=== PATIENT | female | born 1955 | race Caucasian/White ===

== ENCOUNTER → 2022-12-21 15:12 | Outpatient (BNVA) | payer MEDICARE, SELFPAY | PROVIDERS: PCP Family Medicine; Visit Provider Psychiatry & Neurology Psychiatry | DX: F33.41 Major depressive disorder, recurrent, in partial remission (principal); R03.0 Elevated blood-pressure reading, without diagnosis of hypertension | CPT/HCPCS: 90833; 99212 ==

== ENCOUNTER → 2023-02-15 14:43 | Outpatient (BNVA) | payer MEDICARE, SELFPAY | PROVIDERS: PCP Family Medicine; Visit Provider Psychiatry & Neurology Psychiatry | DX: F34.1 Dysthymic disorder (principal) | CPT/HCPCS: 90833; 99212 ==

== ENCOUNTER 2023-05-20 16:04 | Outpatient (AMB) | payer MEDICARE, SELFPAY ==
--- NOTE | 2023-05-20 17:01 | A.OFFPSYCH_ITS ---
Intake Intake Visit Reasons: depression Allergies No Known Allergies Allergy (Verified 02/15/23 15:21) Medication List - Last Reconciled 05/20/23 by Uli Catalan MD venlafaxine ER 75 mg PO DAILY zolpidem (Ambien) 5 mg PO BEDTIME PRN HPI- Psychiatric Chief Complaint: depression HPI Narrative: Patient has small episodes of dysphoria and melancholy which she can generally work through. Still trying to figure out her balance in life with her elderly mother living with her who is dealing dementia but still I can be taken care of at home in patient perhaps returning to work at least part-time perhaps she continues on venlafaxine which generally has been stabilizing and perhaps protective for helping with chronic anxiety rumination and helping prevent worse past aspects of depressive episodes. No complaints of side effects she does feel a lack of support by some of her family but can arrange for some time away when needed Past Psychiatric History: past hx recurrent depression x years chronic social anxiety Mental Status Exam Mental Status Exam Patient Appearance: Well Grooomed Patient Orientation: Person, Place, Time and Situation Level of Consciousness: Awake Patient Behavior: Appropriate Mood Description: Appropriate Affect Description: Appropriate and Constricted Patient Cognition Impaired: No Ability to Follow Directions: Excellent Speech Pattern: Clear and Appropriate Memory Description: Intact Hallucinations: None Delusions: Not Present Thought Process: Intact Thought Content: positive for Preoccupation, negative for Suicidal Ideation or negative for Homicidal Ideation Depressive Symptoms: Increased Anxiety, Diff. Making Decisions and Low Self Esteem Judgement: Good Judgement and Insight: Difficulty decision making in relation to longterm her mother living with her tendency toward self deprecation Assessment and Plan Assessment & Plan (1) Dysthymia: Status: Acute Code(s): F34.1 - Dysthymic disorder (2) Borderline hypertension: Status: Acute Code(s): R03.0 - Elevated blood-pressure reading, without diagnosis of hypertension (3) Social anxiety disorder: Status: Acute Code(s): F40.10 - Social phobia, unspecified Plan Patient generally stable encourage consideration of use of light box in fall we have discussed L methyl folate continue venlafaxine encouraged daily exercise relaxation techniques trying clarify decision-making and future planning encourage increase activities patient does have a good friend support system close with children Counseling and coordination of Care Pt. Self Management counseling: Breathing and Sleep hygiene Details-Self Mgmt counseling: Life management and longterm related decisions Details: I spent [40] minutes reviewing the record, seeing the patient and documenting in the medical record. Counseling provided to the patient/caregiver as outlined below. Addressed patient/caregiver concerns regarding current medication regime including effective adherence. Addressed patient/caregiver concerns regarding diagnosis and prognosis including accuracy of diagnosis, prognosis over time, impact of diagnosis. Addressed patient/caregiver concerns regarding impact of recent stressors. 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
== END 2023-05-20 16:52 | disposition home or self-care (01) ==
LOC: HO.HOP 16:04
PROVIDERS: PCP Family Medicine; Visit Provider Psychiatry & Neurology Psychiatry
DX: F34.1 Dysthymic disorder (principal); R03.0 Elevated blood-pressure reading, without diagnosis of hypertension; F40.10 Social phobia, unspecified
CPT/HCPCS: 90833; 99213

== ENCOUNTER → 2023-05-20 16:04 | Outpatient (BNVA) | payer MEDICARE, SELFPAY | PROVIDERS: PCP Family Medicine; Visit Provider Psychiatry & Neurology Psychiatry | DX: F34.1 Dysthymic disorder (principal); F40.10 Social phobia, unspecified; R03.0 Elevated blood-pressure reading, without diagnosis of hypertension | CPT/HCPCS: 90833; 99212 ==

== ENCOUNTER 2023-09-23 13:49 | Outpatient (AMB) | payer MEDICARE, SELFPAY ==
--- NOTE | 2023-09-23 14:28 | MHC.OFFVISPS ---
Intake Intake Visit Reasons: depression Allergies No Known Allergies Allergy (Verified 02/15/23 15:21) HPI- Psychiatric Chief Complaint: depression HPI Narrative: Pt is a 68 yo female generally doing ok mother living with her this cont to work in past mother was entitled mother was always very defended feels like its working for her now home other tends more to follow direction at this point she feels less constrained does feel supported by her brothers when needed has not felt the need to return to work at this point does a lot of home projects Past Psychiatric History: past hx recurrent depression x years chronic social anxiety Mental Status Exam Mental Status Exam Patient Appearance: Well Grooomed Patient Orientation: Person, Place, Time and Situation Level of Consciousness: Awake Patient Behavior: Appropriate Mood Description: Calm, Happy and Appropriate Affect Description: Appropriate Patient Cognition Impaired: No Ability to Follow Directions: Excellent Speech Pattern: Clear and Appropriate Memory Description: Intact Hallucinations: None Delusions: Not Present Thought Process: Intact Thought Content: positive for Intact, negative for Suicidal Ideation or negative for Homicidal Ideation Judgement: Good Assessment and Plan Assessment & Plan (1) Social anxiety disorder: Status: Acute Code(s): F40.10 - Social phobia, unspecified (2) Borderline hypertension: Status: Acute Code(s): R03.0 - Elevated blood-pressure reading, without diagnosis of hypertension Plan Continue venlafaxine patient is aware she may at some point half to put her mom in to assisted living mood stable pleasant future oriented Medications: Refilled venlafaxine ER 75 mg PO DAILY 90 caps 1RF Counseling and coordination of Care Pt. Self Management counseling: Breathing Diagnosis and Prognosis Counseling: Impact of diagnosis on life functions and Adequacy of current interventions Details: I spent [36] minutes reviewing the record, seeing the patient and documenting in the medical record. Counseling provided to the patient/caregiver as outlined below. Addressed patient/caregiver concerns regarding current medication regime including effective adherence. Addressed patient/caregiver concerns regarding diagnosis and prognosis including accuracy of diagnosis, prognosis over time, impact of diagnosis. Addressed patient/caregiver concerns regarding impact of recent stressors. 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
== END 2023-09-23 15:53 | disposition home or self-care (01) ==
LOC: HO.HOP 13:49
PROVIDERS: PCP Family Medicine; Visit Provider Psychiatry & Neurology Psychiatry
DX: F40.10 Social phobia, unspecified (principal); R03.0 Elevated blood-pressure reading, without diagnosis of hypertension
CPT/HCPCS: 90833; 99213

== ENCOUNTER → 2023-09-23 13:49 | Outpatient (BNVA) | payer MEDICARE, SELFPAY | PROVIDERS: PCP Family Medicine; Visit Provider Psychiatry & Neurology Psychiatry | DX: F40.10 Social phobia, unspecified (principal); R03.0 Elevated blood-pressure reading, without diagnosis of hypertension | CPT/HCPCS: 90833; 99212 ==

== ENCOUNTER 2024-02-03 12:03 | Outpatient (AMB) | payer MEDICARE, OTHER, SELFPAY ==
--- NOTE | 2024-02-03 12:15 | A.OFFPSYCH_ITS ---
Intake Intake Visit Reasons: depression Allergies No Known Allergies Allergy (Verified 02/15/23 15:21) HPI- Psychiatric Chief Complaint: depression HPI Narrative: Pt now on lisinopril 10 mg has been under inc stress has been great mother with dementia goes to day tx 3 x wk pt is able to go out for periods of time gets more confused at nite the patient has made peace with the fact that her mother may at some point in the not too distant future may need to go to a senior care. Her mood is generally okay she is active and social she does have some periods of dysphoria but able to work those through Past Psychiatric History: past hx recurrent depression x years chronic social anxiety Mental Status Exam Mental Status Exam Patient Appearance: Well Grooomed Patient Orientation: Person, Place, Time and Situation Level of Consciousness: Awake Patient Behavior: Appropriate Mood Description: Calm, Happy and Appropriate Affect Description: Appropriate and Anxious Patient Cognition Impaired: No Ability to Follow Directions: Excellent Speech Pattern: Clear and Appropriate Memory Description: Intact Hallucinations: None Delusions: Not Present Thought Process: Intact Thought Content: positive for Intact, negative for Suicidal Ideation or negative for Homicidal Ideation Depressive Symptoms: Increased Anxiety Judgement: Good Assessment and Plan Assessment & Plan (1) Social anxiety disorder: Status: Acute Code(s): F40.10 - Social phobia, unspecified (2) Dysthymia: Status: Acute Code(s): F34.1 - Dysthymic disorder Plan Discussed with patient use of doxepin low-dose at bedtime for insomnia may help with anxiety risks benefits alternatives reviewed Ambien discontinued Medications: New doxepin 10 mg PO BEDTIME 30 caps 1RF Refilled venlafaxine ER 75 mg PO DAILY 90 caps 1RF Discontinued zolpidem Discontinued Reason: Doctor's Order 5 mg PO BEDTIME PRN 30 tabs 1RF insomnia Counseling and coordination of Care Details-Self Mgmt counseling: 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 Counseling provided to the patient/caregiver as outlined below. Addressed patient/caregiver concerns regarding current medication regime including effective adherence. Addressed patient/caregiver concerns regarding diagnosis and prognosis including accuracy of diagnosis, prognosis over time, impact of diagnosis. Addressed patient/caregiver concerns regarding impact of recent stressors. 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
== END 2024-02-03 14:12 | disposition home or self-care (01) ==
LOC: HO.HOP 12:03
PROVIDERS: PCP Family Medicine; Visit Provider Psychiatry & Neurology Psychiatry
DX: F40.10 Social phobia, unspecified (principal); F34.1 Dysthymic disorder
CPT/HCPCS: 90833; 99213

== ENCOUNTER → 2024-02-03 12:03 | Outpatient (BNVA) | payer MEDICARE, OTHER, SELFPAY | PROVIDERS: PCP Family Medicine; Visit Provider Psychiatry & Neurology Psychiatry | DX: F32.A Depression, unspecified (principal); F40.10 Social phobia, unspecified; F34.1 Dysthymic disorder | CPT/HCPCS: 99212 ==

== ENCOUNTER 2024-05-08 14:07 | Outpatient (AMB) | payer MEDICARE, OTHER, SELFPAY ==
--- NOTE | 2024-05-08 14:16 | MHC.OFFVISPS ---
Intake Intake Visit Reasons: depression Allergies No Known Allergies Allergy (Verified 02/15/23 15:21) Medication List - Last Reconciled 05/08/24 by Uli Catalan MD doxepin 10 mg PO BEDTIME 90 days lisinopril 20 mg PO DAILY venlafaxine ER 75 mg PO DAILY HPI- Psychiatric Chief Complaint: depression HPI Narrative: Pt seen in f/u mood has been stable goes adult daycare will transition at some point to snf. Pt does enjoy her life generally. Pt just found out d is looking to leave her h . Some concerns regarding their relationship patient herself has generally made peace with the fact her mother who has dementia is living with her in may eventually need a more restrictive setting. Patient has adjusted to having her in the house mood generally good stable future oriented keeps herself busy social. She is taking low-dose of medication for hypertension Past Psychiatric History: past hx recurrent depression x years chronic social anxiety Mental Status Exam Mental Status Exam Patient Appearance: Well Grooomed Patient Orientation: Person, Place, Time and Situation Level of Consciousness: Awake Patient Behavior: Appropriate Mood Description: Calm, Happy and Appropriate Affect Description: Appropriate and Anxious Patient Cognition Impaired: No Ability to Follow Directions: Excellent Speech Pattern: Clear and Appropriate Memory Description: Intact Hallucinations: None Delusions: Not Present Thought Process: Intact Thought Content: positive for Intact, negative for Suicidal Ideation or negative for Homicidal Ideation Depressive Symptoms: Increased Anxiety Judgement: Good Assessment and Plan Assessment & Plan (1) Social anxiety disorder: Status: Resolved Code(s): F40.10 - Social phobia, unspecified (2) Major depression in full remission: Status: Acute Code(s): F32.5 - Major depressive disorder, single episode, in full remission Plan Pt has generally been stable dealing with d who is getting may have more resonsibilities daughter on meds for depression patient finds doxepin 10 mg very helpful for sleep she is on lisinopril for hypertension we did discuss brain protection from treatment for her high blood pressure Medications: Refilled doxepin 10 mg PO BEDTIME 90 caps 1RF 90 days venlafaxine ER 75 mg PO DAILY 90 caps 1RF Counseling and coordination of Care Details-Self Mgmt counseling: Discussed issues related to current life situation with her mother and daughter strategies patient continues to manage in try to maintain a positive lifestyle some limited help from her brothers with their mother Diagnosis and Prognosis Counseling: Adequacy of current interventions Details: I spent [37] minutes reviewing the record, seeing the patient and documenting in the medical record. Counseling provided to the patient/caregiver as outlined below. Addressed patient/caregiver concerns regarding current medication regime including effective adherence. Addressed patient/caregiver concerns regarding diagnosis and prognosis including accuracy of diagnosis, prognosis over time, impact of diagnosis. Addressed patient/caregiver concerns regarding impact of recent stressors. 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
== END 2024-05-08 14:47 | disposition home or self-care (01) ==
LOC: HO.HOP 14:07
PROVIDERS: PCP Family Medicine; Visit Provider Psychiatry & Neurology Psychiatry
DX: F40.10 Social phobia, unspecified (principal); F32.5 Major depressive disorder, single episode, in full remission
CPT/HCPCS: 90833; 99213

== ENCOUNTER → 2024-05-08 14:07 | Outpatient (BNVA) | payer MEDICARE, OTHER, SELFPAY | PROVIDERS: PCP Family Medicine; Visit Provider Psychiatry & Neurology Psychiatry | DX: F32.5 Major depressive disorder, single episode, in full remission (principal); F40.10 Social phobia, unspecified | CPT/HCPCS: 99212 ==

== ENCOUNTER 2024-08-07 14:26 | Outpatient (AMB) | payer MEDICARE, OTHER, SELFPAY ==
--- NOTE | 2024-08-07 15:15 | A.OFFPSYCH_ITS ---
Intake Intake Visit Reasons: Depression Allergies No Known Allergies Allergy (Verified 02/15/23 15:21) Medication List - Last Reconciled 09/08/24 by Uli Catalan MD doxepin 10 mg PO BEDTIME 90 days lisinopril 20 mg PO DAILY venlafaxine ER 75 mg PO DAILY HPI- Psychiatric Chief Complaint: Depression HPI Narrative: Patient seen psychiatric follow-up. Patient's mood generally good continues to do a balancing act managing her mother living with her and managing her condition which entails dementia dealing with health and safety concerns. Patient has generally made her peace not overly depressed or anxious. Content at this time not working generally feels better with less blues on the higher dose venlafaxine and doxepin has been quite helpful was for insomnia probably also helping anxiety to some degree. Past Psychiatric History: past hx recurrent depression x years chronic social anxiety Mental Status Exam Mental Status Exam Patient Appearance: Well Grooomed Patient Orientation: Person, Place, Time and Situation Level of Consciousness: Awake Patient Behavior: Appropriate Mood Description: Calm, Happy and Appropriate Affect Description: Appropriate Patient Cognition Impaired: No Ability to Follow Directions: Excellent Speech Pattern: Clear and Appropriate Memory Description: Intact Hallucinations: None Delusions: Not Present Thought Process: Intact Thought Content: positive for Intact, negative for Suicidal Ideation or negative for Homicidal Ideation Judgement: Good Assessment and Plan Assessment & Plan (1) Social anxiety disorder: Status: Resolved Code(s): F40.10 - Social phobia, unspecified (2) Major depression in full remission: Status: Acute Code(s): F32.5 - Major depressive disorder, single episode, in full remission Plan PHQ-9 GED unremarkable. Patient stable on a combination of venlafaxine doxepin does have healthy strategies to manage in continues to manage her mother's condition and appears to have peace of mind. Doxepin helpful for insomnia no side effects noted continue plan of care. No evidence of side effects or adverse effects follow-up proximally 3 months blood pressure and control prone to dysthymia but mood seems quite stable patient has a set of coping strategies that appear to be effective Medications: Refilled doxepin 10 mg PO BEDTIME 90 caps 1RF 90 days Counseling and coordination of Care Details-Self Mgmt counseling: Issues related to managing longterm mother's chronic dementia condition in quality of life Diagnosis and Prognosis Counseling: Adequacy of current interventions Details: I spent [39] minutes reviewing the record, seeing the patient and documenting in the medical record. Counseling provided to the patient/caregiver as outlined below. Addressed patient/caregiver concerns regarding current medication regime including effective adherence. Addressed patient/caregiver concerns regarding diagnosis and prognosis including accuracy of diagnosis, prognosis over time, impact of diagnosis. Addressed patient/caregiver concerns regarding impact of recent stressors. 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
== END 2024-08-07 15:21 | disposition home or self-care (01) ==
LOC: HO.HOP 14:26
PROVIDERS: PCP Family Medicine; Visit Provider Psychiatry & Neurology Psychiatry
DX: F40.10 Social phobia, unspecified (principal); F32.5 Major depressive disorder, single episode, in full remission
CPT/HCPCS: 90833; 99213

== ENCOUNTER → 2024-08-07 14:26 | Outpatient (BNVA) | payer MEDICARE, OTHER, SELFPAY | PROVIDERS: PCP Family Medicine; Visit Provider Psychiatry & Neurology Psychiatry | DX: F32.5 Major depressive disorder, single episode, in full remission (principal); F40.10 Social phobia, unspecified; Z71.89 Other specified counseling | CPT/HCPCS: 99212 ==

== ENCOUNTER 2025-01-04 11:32 | Outpatient (AMB) | payer MEDICARE, OTHER, SELFPAY ==
--- NOTE | 2025-01-04 11:40 | MHC.OFFVISPS ---
Intake Intake Visit Reasons: Depression Allergies No Known Allergies Allergy (Verified 02/15/23 15:21) Medication List - Last Reconciled 01/04/25 by Uli Catalan MD doxepin 10 mg PO BEDTIME 90 days lisinopril 20 mg PO DAILY venlafaxine ER 75 mg PO DAILY HPI- Psychiatric Chief Complaint: Depression HPI Narrative: Patient seen psychiatric follow-up. Patient's mood stable on Effexor has been chronically dealing with issues related to having her mother live with her as dementia No new medical concerns able to enjoy things has good concentration attention enjoys doing projects. Has good relations with her family has been feeling stable and intermediate. No change indicated Past Psychiatric History: past hx recurrent depression x years chronic social anxiety Subjective Subjective Subjective Medication Compliance: Yes Side effects from medications: Yes Mental Status Exam Mental Status Exam Patient Appearance: Well Grooomed Patient Orientation: Person, Place, Time and Situation Level of Consciousness: Awake Patient Behavior: Appropriate Mood Description: Calm, Happy and Appropriate Affect Description: Appropriate Patient Cognition Impaired: No Ability to Follow Directions: Excellent Speech Pattern: Clear and Appropriate Memory Description: Intact Hallucinations: None Delusions: Not Present Thought Process: Intact Thought Content: positive for Intact, negative for Suicidal Ideation or negative for Homicidal Ideation Judgement: Good Assessment and Plan Assessment & Plan (1) Social anxiety disorder: Status: Resolved Code(s): F40.10 - Social phobia, unspecified Plan Patient doing well for insomnia with doxepin 10 mg at bedtime continue venlafaxine 75 mg daily has been helpful for depression and anxiety management Medications: Refilled doxepin 10 mg PO BEDTIME 90 caps 1RF 90 days venlafaxine ER 75 mg PO DAILY 90 caps 1RF Counseling and coordination of Care Details: I spent [] minutes reviewing the record, seeing the patient and documenting in the medical record. Counseling provided to the patient/caregiver as outlined below. Addressed patient/caregiver concerns regarding current medication regime including effective adherence. Addressed patient/caregiver concerns regarding diagnosis and prognosis including accuracy of diagnosis, prognosis over time, impact of diagnosis. Addressed patient/caregiver concerns regarding impact of recent stressors. 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
--- OUTSIDE RECORDS SUMMARY | 2025-01-04 12:53 | XMS_ITS | Data Portability ---
Author Organization [place] - [facility],, ANASTASIYA ENGLISH MD Address [address] [address] Care Team Providers Care Physical Therapy Aide Name Role Phone ENID RAMIREZ Primary Care Provider Assessment No assessment recorded. Plan of Treatment Reminders Order Date Submit Date Provider Last Modified By Organization Details Last Modified Time Details Appointments FOLLOWUP 2024 10:20A M Anastasiya English MD Not available Not available Not available Lab biopsy, endometri al 2023 024 [facility], [address] [place], [address], 10/23/2024 07:41:17 biopsy, cervical 2023 024 [employer] [facility], [address] [place], [address], 10/23/2024 07:41:18 biopsy, endocervi carmen 2023 024 AMVONET [facility], [address] [place], [address], 10/23/2024 07:41:18 cytology report, thin prep, smear or scraping, cervical or vaginal 2023 024 KYA [facility], [address] [place], [address], 09/21/2024 16:06:53 pap test, thinprep, cervical 2021 022 [employer], [address] [place], [address], 09/17/2022 07:36:36 Referral None recorded. Procedures biopsy, endometri um (PROC) 2023 KYA In-Office Order, Internal Use Only DO Not Attach Compendium DO Not Attach Compendium, Do Not Delete/merge, [id number] 10/16/2024 11:00:34 colposcop y with biopsy and endocervi carmen curettage (PROC) 2023 KYA In-Office Order, Internal Use Only DO Not Attach Compendium DO Not Attach Compendium, Do Not Delete/merge, [id number] 10/16/2024 11:00:34 Surgeries None recorded. Imaging MAMMO, screening , digital, bilateral - Breast Aspiratio n and/or Biopsy if needed 2023 [facility] Orders, [address], [address], [place], [address], 09/14/2024 15:42:41 bone density 2023 024 [facility] ([facility]), [address] [place], [address], 09/14/2024 15:42:41 MAMMO, screening , digital, bilateral 2021 022 [facility] Orders, [address], [address], [place], [address], 11/24/2022 16:21:09 bone density 2021 022 [facility] Orders, [address], [address], [place], [address], 11/27/2022 10:04:41 Medication Orders None recorded. Patient TargetsNo targets recorded. Patient Instructions Encounter Date Encounter Id Patient Instructions Last Modified By Organization Details Last Modified Time 09/03/2022 [id number] Quitting Tobacco : Care Instructions Not available 09/03/2022 11:35:19 atrophic vaginit is: care instructions Not available 09/03/2022 11:34:18 learning about healthy weight [email or web address] Not available 09/03/2022 11:34:18 She is here for annual exam, doing well, has not had a mammogram wince 2018 though. Her mother is stil living with her. She is happily retired. She is a current every day smoker. Note from 2019: She is here for annual exam, is doing well. Her daughter is getting and is very happy. Her mother moved in with her and that is a strain. She would like a flu shot today. She appears to be doing well. Literature given for smoking cessation. Check bone density. Monthly self breast exam was taught, and stressed, and is advised to call if she discovers any new mass in the breast. [email or web address] Not available 09/03/2022 11:35:56 12/30/2022 [id number] deciding about using medicines to quit smoking Not available 12/30/2022 11:26:15 Quitting Tobacco : Care Instructions [email or web address] Not available 12/30/2022 11:26:15 This visit is a phone telehealth visit. The patient consented to the visit by phone. The patient was at home at the time of the call and the provider and patient were the only people on the line. I was at [address] [place] [address], [facility] [address], [place], at the time of the call. She had a recent bone density that showed her spine T-score dropped from -1.1 to -1.8 since 2018. She is an every day smoker, and does not get adequate calcium in her diet, does not take a supplement for calcium either. ___ Note from 09/05: She is here for annual exam, doing well, has not had a mammogram wince 2018 though. Her mother is stil living with her. She is happily retired. She is a current every day smoker. _ We discussed her new diagnosis of osteopenia. We reviewed the results of her bone density test, with reference to the computer images. We discussed the way that standard deviation is used for diagnosis, and what this means to her as she ages. Adequate calcium intake of 1500 mg daily, weight bearing exercise three times a week, and vitamin D supplementation of at least 400 units daily is suggested. She is advised to avoid tobacco, coffee, and steroids if possible. Benefits of an active lifestyle discussed as well. All questions answered. We discussed the different forms of medical treatment for osteoporosis, in case she might need this in the future. She will repeat the bone density testing in 2 years to assess her progress.She is aware that if her bone density diminished significantly in the intervening 2 years she may need medical therapy at that time. She is encouraged to try this preventive therapy first. Return for routine annual exam as scheduled. Face to face discussion for 30 minutes. Not available 12/30/2022 11:26:34 09/14/2024 [id number] deciding about using medicines to quit smoking Not available 09/14/2024 14:57:58 Quitting Tobacco : Care Instructions Not available 09/14/2024 14:57:58 atrophic vaginit is: care instructions Not available 09/14/2024 14:44:26 learning about healthy weight Not available 09/14/2024 14:44:26 She is here for annual, doing well, current every day smokier. Bone density 2022 osteopenia. Overdue for mammogram, agrees to go now. Her 92 year old mother is living wiht her it is very stressful. ___ Note from 2021: She is here for annual exam, doing well, has not had a mammogram wince 2018 though. Her mother is stil living with her. She is happily retired. She is a current every day smoker. She appears to be doing well. Smoking cessation literature given. Monthly self breast exam was taught, and stressed, and is advised to call if she discovers any new mass in the breast. Not available 09/14/2024 14:58:33 10/04/2024 [id number] She is here to discuss her recent pap which showed MARK favor neoplastic. Her prior pap was 09/05 and negative, was satisfactory. She is an every day smoker, 1 PPD. She is , , retired, not sexually active. We discussed what this is and what the concerns are. She will return for colpo with ecc and also emb and she is scheduled to get a pelvic sonogram, she is aware we are ruling out cancer of the cervix or endometrium, but it could well likely be a benign finding. She understands and agrees, all questions answered. Face to face discussion, chart review and coordination of care: 25 minutes Not available 10/04/2024 11:47:02 10/16/2024 [id number] postmenopausal bleeding information Not available 10/16/2024 10:12:57 endometrial biop sy: about this test Not available 10/16/2024 10:12:57 colposcopy: what to expect at home Not available 10/16/2024 10:12:57 human papillomavirus (HPV): care instructions Not available 10/16/2024 10:12:57 She is here for colpo, ecc and emb for pap with MARK favor neoplastic. __ Note from 10/04/24: She is here to discuss her recent pap which showed MARK favor neoplastic. Her prior pap was 09/05 and negative, was satisfactory. She is an every day smoker, 1 PPD. She is , , retired, not sexually active. We discussed what this is and what the concerns are. She will return for colpo with ecc and also emb and she is scheduled to get a pelvic sonogram, she is aware we are ruling out cancer of the cervix or endometrium, but it could well likely be a benign finding. She tolerated well, await results. Visually the cervix appears to have had a cryo in the past but she has no recollection of htat so it may just be how her cervix appears. Not available 10/16/2024 10:16:43 Reason for Referral None Reported. Results Created Date Observation Date Name Description Value Unit Range Abnormal Flag Note LastModifiedBy Organization Detail LastModifiedTime 09/03/20 22 09/03/2022 [facility] CYTOL OGY results Patie nt Name: ANGEL KENT CIA Patie nt : [phone] (Age: 67) Lab Acces fredo #: [id number] Colle ction Date: 09/03 Acces fredo Date: 09/04 Sign Out Date: 09/14 Tissu e Sourc e: 1: THINP REP BACK FEEDER PLYWOOD LAYUP LINE PAP TEST, CERVI CARMEN: Final Diagn osis: NEGAT MARGIE FOR INTRA EPITH ELIAL LESIO N OR MALIG ANJU . [place] nayeli squam ous matur ation is prese nt for patie nt's age. Satis facto ry for evalu ation . Endoc ervic al/tr ansfo rmati on zone prese nt. Clini carmen Histo ry: Date of Last Menst rual Perio d: not avail able Menst rual Histo ry: Post- menop ausal Contr acept margie Histo ry: not avail able Ancil stan Testi ng: HPV (ASCU S) Case image d by the ThinP rep Imagi ng Syste m with buddy [place]ason or [place]. Clini carmen Histo ry (othe r): Z12.4 , LPS 09/10 negat margie, V76.2 Prima ry Patho logis t: Jordan Mckoy M.D. 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 ATYPI CARMEN GLAND ULAR CELLS (AGC) , FAVOR NEOPL ASTIC . Not Available [id number] [facility], [place], [address], 09/21/2024 16:06:53 09/14/20 24 09/21/2024 IGP, RFX APTIM A HPV ASCU specimen adequacy: Bret mckeon Satis facto ry for evalu ation . Endoc ervic al and/o r squam ous metap lasti c cells (endo cervi carmen compo nent) are prese nt. Not Available [address], [address], 09/21/2024 16:06:53 09/14/20 24 09/21/2024 IGP, RFX APTIM A HPV ASCU clinician provided ICD10: Bret mckeon Z12.4 Not Available [address], [address], 09/21/2024 16:06:53 09/14/20 24 09/21/2024 IGP, RFX APTIM A HPV ASCU additional comment: Bret mckeon INTRA DEPAR TMENT AL CONSU LTANT : DR. Saeid RIOS Not Available [address], [address], 09/21/2024 16:06:53 09/14/20 24 09/21/2024 IGP, RFX APTIM A HPV ASCU performed by: Bret Alanis, Cytot echtari molina t (ASCP ) Not Available [address], [address], 09/21/2024 16:06:53 09/14/20 24 09/21/2024 IGP, RFX APTIM A HPV ASCU electronical ly signed by: Bret Alfaro MD, Patho logis t Not Available [address], [address], 09/21/2024 16:06:53 09/14/20 24 09/21/2024 IGP, RFX APTIM A HPV ASCU . . Not Available [address], [address], 09/21/2024 16:06:53 09/14/20 24 09/21/2024 IGP, RFX APTIM A HPV ASCU pathologist provided ICD10: Bret linda R87.6 19 Not Available [address], [address], 09/21/2024 16:06:53 09/14/20 24 09/21/2024 IGP, RFX APTIM A HPV ASCU note: Commen t The Pap smear is a scree sarina test desig ban to aid in the detec tion of markos ligna nt and malig nant condi tions of the uteri ne cervi x. It is not a diagn ostic proce dure and shoul d not be used as the sole means of detec ting cervi carmen cance r. Both false -posi tive and false -nega tive repor ts do occur . Not Available [address], [address], 09/21/2024 16:06:53 09/14/20 24 09/21/2024 IGP, RFX APTIM A HPV ASCU test methodology: Commen t This liqui d based ThinP rep(R ) pap test was scree ban with the use of an image guide nevaeh patel. Not Available [address], [address], 09/21/2024 16:06:53 09/14/20 24 09/21/2024 IGP, RFX APTIM A HPV ASCU . Commen t The HPV DNA refle x crite reyna were not met with this speci men resul t there fore, no HPV testi ng was perfo rmed. Not Available [address], [address], 09/21/2024 16:06:53 10/16/20 24 10/16/2024 [facility] SURGI CARMEN PATHO LOGY results Patisasha nt Name: ANGEL KENT SANTA Lab Acces fredo #: [id number] Patisasha nt : [phone] (Age: 69) Colle ction Date: 2023 Acces fredo Date: 2023 Sign Out Date: 2023 Tissu e Sourc e: 1:EMB 2:ECC 3:CER VICAL Final Diagn osis: 1.End ometr ium, biops y: - Disag grega nayeli atrop hic endom etriu m with juancarlos al break down. (see Note) A. Focal tubal (cili ated) epith elial montano e prese nt (estr ogen effec t). - Fragm ented endoc ervic al gland ular epith elium . 2. Endoc ervix , curet tage: - Endoc ervic al gland ular and squam ous epith elium , and mostl y fragm ents of atrop hic endom etriu m. - Mucus and infla mmato ry exuda te. 3. Cervi x, biops y: - Squam ous mucos a and detac hed squam ous epith elium with mild chron ic infla mmati on. A. Endoc ervic al gland ular trans forma tion zone not repre sente d. Note: Histo logic secti ons of all parts are Negat margie for gland ular or squam ous atypi a. Prima ry Patho logis t:Sam Richards M.D., Ph.D. elect luis eduardo giovany marisol d out by: Lyssa Richards M.D., Ph.D. / [facility] [place] Cl[place] carmen Histo ry: Atypi carmen gland ular cells on cervi carmen papan icola ou smear 09/14 Gross Descr iptio n: Part 1. Label ed endo metri al biops y . Recei nakul in forma jesi is a 1.0 x 0.7 x 0.2 cm aggre gate of red, leach tissu e with trans lucen t mucus . The speci men is entir lawanda submi tted. 1-mul tiple piece s, x 2. (EG)* Part 2. Label ed endo cervi carmen curet tings . Recei nakul in forma jesi is a 2.0 x 1.3 x 0.[address] gate of trans lucen t mucus with red, leach tissu e. The speci men is entir lawanda submi tted. 1-mul tiple piece s, x 2. (EG)* Part 3. Label ed cerv ix biops y . Recei nakul in forma jesi are three soft leach irreg ular tissu es rangi ng in size from 0.9 x 0.4 x 0.3 cm to 0.4 x 0.4 x 0.3 cm. The speci mens are entir lawanda submi tted. 1-3 piece s, x 2. (EG)* As of January 22, 2024, the speci men proce ssing and stain ing is perfo rmed at [facility] , [address] [place] (CLIA #[id number]). Its perfo rmanc e angelika cteri stics deter mined by [facility] . Alia Link M.D. Medic al D[facility] tor of Surgi carmen Patho Saeid gross M.D. Medic al Direc tor Cytop athol ogy Phone #: [phone], On-Ca ll Patho logis t: [id number] Not Available [facility] [address] [place], [address], 10/22/2024 19:01:29 11/24/19 23 11/24/2022 MAMMO , scree sarina, digit al, bilat eral No observ ation record ed. [facility] [address], [place], [address], 11/24/2022 16:30:30 11/27/19 23 11/24/2022 bone densi ty No observ ation record ed. [email or web address] [facility] [address], [place], [address], 12/29/2022 09:39:23 11/30/19 23 01/12/2018 bone densi ty No observ ation record ed. [facility] Orders [address], [place], [address], 12/03/2022 09:12:57 Result Notes None recorded. Problems Name Problem SNOMED Code Status Onset Date Resolution Date Notes Provider Name and Address Organization Details Recorded Time Tobacco dependence syndrome 50343255 Active 018 Anastasiya English MD [address], [place], [address], [place] - [facility], 8 10:17:23 Depressive disorder 04830463 Active Anastasiya English MD [address], [place], [address], [place] - [facility], 6 08:21:32 Osteopenia 727975898 Active 023 Anastasiya English MD [address], [place], [address], [place] - [facility], 3 11:25:49 Problem Notes None recorded. Procedures Surgical History Date Name Laterality Status Provider Name and Address Organization Details Recorded Time 4 Colposcopy completed Anastasiya English MD [address], [place], [address], [place] - [facility], 10/16/2024 10:11:13 4 Endometrial Biopsy completed Anastasiya English MD [address], [place], [address], [place] - [facility], 10/16/2024 10:11:34 3 Most Recent Mammogram completed Socorro Carrillo in [facility], 09/04/2024 09:42:36 3 Most Recent Bone Density completed Socorro Carrillo in [facility], 09/04/2024 09:43:32 Imaging Results Imaging Date Name Status LastModified by Organiz ation Details LastModified Time 11/24/2022 MAMMO, screening, digital, bilateral completed [facility] [address], [place], [address], 11/24/2022 16:30:30 11/24/2022 bone density completed [email or web address] [facility] [address], [place], [address], 12/29/2022 09:39:23 01/12/2018 bone density completed [facility] Orders [address], [place], [address], 12/03/2022 09:12:57 Procedure Notes None recorded. Medical Equipment None Reported. Allergies No known drug allergies Medications Name Sig Start Date Stop Date Status Note LastModified by Organization Details LastModified Time venlafaxine ER 37.5 mg capsule,ext ended release 24 hr TAKE 3 CAPSULES BY MOUTH DAILY 09/03 completed Not Available Not Available Not Available venlafaxine ER 75 mg capsule,ext ended release 24 hr TAKE 1 CAPSULE BY MOUTH DAILY active Not Available Not Available No t Available trazodone 50 mg tablet TAKE 1/2-1 TABLET BY MOUTH AT BEDTIME 09/03 completed Not Available Not Available Not Available azithromyci n 250 mg tablet TAKE 2 TABLETS BY MOUTH TODAY, THEN TAKE 1 TABLET DAILY FOR 4 DAYS 09/03 completed Not Available Not Available Not Available lisinopril 20 mg tablet TAKE 1 TABLET BY MOUTH EVERY DAY active Not Available Not Available No t Available prednisone 20 mg tablet TAKE TWO TABLETS AT SAME TIME EACH DAY FOR FIVE DAYS. 09/03 completed Not Available Not Available Not Available venlafaxine ER 150 mg capsule,ext ended release 24 hr active Not Available Not Available Not Available penicillin V potassium 500 mg tablet TAKE 1 TABLET BY MOUTH EVERY 8 HOURS UNTIL FINISHED 09/14 completed Not Available Not Available Not Available tretinoin 0.05 % topical cream APPLY SMALL AMOUNT TO AFFECTED DRY SKIN AT BEDTIME active Not Available Not Available No t Available doxepin 10 mg capsule TAKE 1 CAPSULE BY MOUTH AT BEDTIME active Not Available Not Available No t Available oxycodone-a cetaminophe n 5 mg-325 mg tablet 09/10 completed Not Available Not Available Not Available hydrocortis one 2.5 % topical cream with perineal applicator APPLY A THIN LAYER TO THE AFFECTED AREA(S) BY TOPICAL ROUTE 2-4 TIMESDAIL Y active Not Available Not Available No t Available NTS Step 1 21 mg/24 hr transdermal 24 hour patch active Not Available Not Available Not Available lisinopril 10 mg tablet TAKE 2 TABLETS BY MOUTH EVERY DAY active Not Available Not Available No t Available zolpidem 5 mg tablet TAKE 1 TABLET BY MOUTH EVERYDAY AT BEDTIME 09/03 completed Not Available Not Available Not Available zolpidem 10 mg tablet active Not Available Not Available No t Available calcium active Not Available Not Avail able Not Available Fish Oil 07/05 completed Not Available Not Available Not Available Vitamin D3 07/05 completed Not Available Not Available Not Available Calcium 500 06/01 completed Not Available Not Available Not Available Chantix 0.5 mg tablet active Not Available Not Available No t Available Fish Oil 1,000 mg capsule active Not Available Not Available Not Available peg 3350 240 gram-electr olytes 22.72 gram-6.72 g-5.84 g powdr for soln 04/30 completed Not Available Not Available Not Available venlafaxine ER 75 mg tablet,exte nded release 24 hr 09/10 completed Not Available Not Available Not Available Chantix Continuing Month Box 1 mg tablet active Not Available Not Available No t Available Multi Vitamin active Not Available Not Available Not Available Fluzone Quad 2017-(PF) 60 mcg(15 mcgx4)/0.5 mL intramuscul ar syringe TO BE ADMINISTE RED BY PHARMACIS T FOR IMMUNIZAT ION active Not Available Not Available No t Available Flowflex COVID-19 Antigen Home Test kit USE DIRECTED active Not Available Not Available No t Available Vitals Date Recorded Body weight Body mass index (BMI) Body height Heart rate Systolic blood pressure Diastolic blood pressure Provider Name and Address Organization Details Last Updated DateTime 2 35270.8 6 g 25 kg/m2 165.1 cm 67 /min 154 mm[Hg] 71 mm[Hg] Payal Harper [place] - [facility], 2 11:12:12 Date Recorded Body height Provider Name an d Address Organization Details Last Updated DateTime 12/30/2022 165.1 cm Socorro Santoyo [place] - Luzmariaat milagros in [facility], 12/30/2022 09:38:56 Date Recorded Body height Body mass index (BMI) Body weight Heart rate Systolic blood pressure Diastolic blood pressure Provider Name and Address Organization Details Last Updated DateTime 4 162.56 cm 25.1 kg/m2 92349.4 9 g 90 /min 137 mm[Hg] 62 mm[Hg] Socorro Carrillo in [facility], 4 14:28:51 Date Recorded Body height Body mass index (BMI) Body weight Body temperature Heart rate Systolic blood pressure Diastolic blood pressure Provider Name and Address Organization Details Last Updated DateTime 4 162.56 cm 25.1 kg/m2 13217.4 9 g 97.4 [degF] 82 /min 150 mm[Hg] 69 mm[Hg] Socorro Carrillo in [facility], 4 10:06:40 Date Recorded Body height Body temperature Body mass index (BMI) Body weight Heart rate Systolic blood pressure Diastolic blood pressure Provider Name and Address Organization Details Last Updated DateTime 4 162.56 cm 97.6 [degF] 25.5 kg/m2 64910.5 4 g 76 /min 160 mm[Hg] 80 mm[Hg] Socorro Carrillo in [facility], 4 09:40:21 Social History Question Answer Notes LastModified by Organizat ion Details LastModified Time Tobacco Smoking Status Current Every Day Smoker smoking cessation discussed 04/22/16 [facility] Available [facility] 09/17/2020 03:19:42 What Is Your Level Of Alcohol Consumption? Occasional [id number] Information not available 09/17/2020 How Many Years Have You Consumed Alcohol? 50 Information not available 09/14/2024 What Is Your Level Of Caffeine Consumption? Occasional [id number] Information not available 09/17/2020 In The 14 Days Before Symptom Onset, Have You Had Close Contact With A Laboratory-confi rmed COVID-19 While That Case Was Ill? No Information not available 09/03/2022 In The 14 Days Before Symptom Onset, Have You Had Close Contact With A Person Who Is Under Investigation For COVID-19 While That Person Was Ill? No Information not available 09/03/2022 Have You Been To An Area Known To Be High Risk For COVID-19? No Information not available 09/03/2022 Are You Currently Employed? No Information not available 09/03/2022 What Type Of Diet Are You Following? REGULAR [id number] Information not available 09/17/2020 Which Illicit Or Recreational Drugs Have You Used? No [id number] Information not available 09/17/2020 Do You Reside In Or Have You Traveled To An Area Where Ebola Virus Transmission Is Active? No [id number] Information not available 09/17/2020 Do You Or Have You Ever Used E-cigarettes Or Vape? Never Used Electronic Cigarettes [id number] Information not available 09/17/2020 Education 4 Year College Information not available 04/04/2013 What Is Your Occupation? Retired Information not available 09/03/2022 How Many Days In The Past Year Have You Had A Heavy Drinking Consumption (4+ Female, 5+ Male)? 12 Information not available 09/10/2020 Are There Any Guns Present In Your Home? No Information not available 09/03/2022 High Number Of Sexual Partners No Information not available 04/30/2017 To Which Gender Do You Self-identify? Female Information not available 04/30/2017 Marital Status Informatio n not available 04/04/2013 What Was The Date Of Your Most Recent Tobacco Screening? 10/16/2024 Information not available 10/16/2024 What Is Your Relationship Status? Information not available 09/03/2022 Are You Sexually Active? No [id number] Information not available 09/17/2020 Do You Or Have You Ever Used Smokeless Tobacco? Never Used Smokeless Tobacco [id number] Information not available 09/17/2020 How Much Tobacco Do You Smoke? 1 PPD [id number] Information not available 09/17/2020 General Stress Level Medium Mom Moved In The Her.,,,getti ng Better Mom In Daycare..2 Days A Week Information not available 12/30/2022 Do You Feel Stressed (tense, Restless, Nervous, Or Anxious, Or Unable To Sleep At Night)? [id number] Information not available 09/03/2022 Do You Use Any Illicit Or Recreational Drugs? No Information not available 09/03/2022 How Many Years Have You Smoked Tobacco? 33 [id number] Information not available 09/17/2020 Have You Recently (within The Last 12 Weeks, Or During A Current ) Traveled To Or Lived In A Zika-affected Area? No Information not available 04/30/2017 Do You Or Have You Ever Used Any Other Forms Of Tobacco Or Nicotine? No Information not available 09/03/2022 How Many Days In The Past Year Have You Consumed 4 Or More Drinks? -1 Information not available 09/14/2024 Sex: Female Functional Status Question Answer Note LastModified by Organizat ion Details LastModified Time What is your exercise level? Occasional [id number] Information not available 09/17/2020 Mental Status None recorded. Family History Relationship Description Onset Age of this Age Resolved Age Notes LastModified by Organization Details LastModified Time Father Myocardial infarction 55 previo usly record ed as Heart Attack ([place]) Not available 04/22/2016 08:13:49 Maternal Grandfather Malignant tumor of colon 47 previo usly record ed as Colon Cancer Not available 04/22/2016 08:13:49 Paternal Grandfather Cerebrovascu lar accident stroke Not available 0 04/22/2016 08:13:49 Medical History Condition Response Anesthesia complications N High Blood Pressure Y Candidate for MyRisk panel N Autoimmune Condition N Kidney or Bladder Problems N Thyroid Problems N Depression Y Lung Disease N GI Problems Y Defects or Inherited Disease N Anemia N History of Ovarian Cancer N History of Breast Cancer N ILEANA exposure N BRCA testing in past N Osteopenia N Psychiatric Illness N Anxiety Disorder N Diabetes N Arthritis N Headaches or Migraines N Infertility N Asthma N History of Cancer N Endometriosis N Hepatitis N Heart Disease N Hypertension Y Osteoporosis N Gynecological History Statement/Question Response If Post Menopausal, Age at Menopause 52 Age at Menarche 13 Most Recent Mammogram 11/24/2022 Age at First Child 25 Most Recent Bone Density 11/24/2022 Hormone Replacement Therapy N Obstetrics History GPAL:G 3 P 3 0 0 3 Type Value Full Term 3 Living 3 Total 3 Immunizations Vaccine Type Date Status Note Provider Nam e and Address Organization Details Recorded Time Influenza, split virus, trivalent, preservative 2 completed [place] [facility], 09/03/2022 11:11:07 Influenza, MDCK, quadrivalent, PF 0 completed Anastasiya English MD [address] [facility],[address], [place], [address], [place] in [facility], 09/10/2020 11:48:36 Influenza, split virus, trivalent, preservative 3 completed [place] Jin in [facility], 09/03/2022 11:11:07 pneumococcal, unspecified formulation 5 completed [place] Jin in [facility], 09/03/2022 11:11:07 influenza, unspecified formulation 6 completed [place] Jin in [facility], 09/03/2022 11:11:07 Influenza, split virus, quadrivalent, preservative 7 completed [place] Crowder in [facility], 06/01/2018 09:46:36 Influenza, split virus, quadrivalent, preservative 8 completed [place] [facility], 09/03/2022 11:11:07 Influenza, split virus, quadrivalent, preservative 9 completed [place] Crowder in [facility], 09/10/2020 11:02:17 Tdap 1 completed [place] Jin in [facility], 09/03/2022 11:11:07 Influenza, split virus, trivalent, preservative 6 completed [place] Jin [facility], 09/03/2022 11:11:07 Influenza, split virus, trivalent, preservative 2 completed [place]al Harpre null, [place] [facility], 09/03/2022 11:11:07 Influenza, split virus, trivalent, preservative 3 completed Payal Leroy null, [place] [facility], 09/03/2022 11:11:07 COVID-19, mRNA, LNP-S, PF, 30 mcg/0.3 mL dose 1 completed Payal Leroy null, [place] [facility], 09/03/2022 11:11:07 COVID-19, mRNA, LNP-S, PF, 30 mcg/0.3 mL dose 1 completed Payal Harper null, [place] [facility], 09/03/2022 11:11:07 Td(adult) unspecified formulation 5 completed Payal Leroy null, [place] [facility], 09/03/2022 11:11:07 pneumococcal polysaccharide PPV23 5 completed Payal Harper null, [place] [facility], 09/03/2022 11:11:07 Influenza, split virus, quadrivalent, PF 8 completed Payal [place] null, [place] [facility], 09/03/2022 11:11:07 Influenza, split virus, trivalent, preservative 7 completed Payal Harper null, [place] [facility], 09/03/2022 11:11:07 pneumococcal, unspecified formulation 5 completed Payal Harper null, [place] [facility], 09/03/2022 11:11:07 COVID-19, mRNA, LNP-S, PF, 30 mcg/0.3 mL dose 1 completed Payal Leroy null, [place] [facility], 09/03/2022 11:11:07 Influenza, split virus, quadrivalent, preservative 1 completed Payal Harper null, [place] [facility], 09/03/2022 11:13:56 Influenza, high-dose, quadrivalent, PF 2 completed Socorro Meczywor null, [place] - [facility], 09/14/2024 14:28:19 COVID-19, mRNA, LNP-S, bivalent, PF, 30 mcg/0.3 mL dose 2 completed Socorro Meczywor null, [place] [facility], 09/14/2024 14:28:19 Tdap 3 completed Socorro Meczywor null, [place] [facility], 09/14/2024 14:28:19 Pneumococcal conjugate PCV20, polysaccharide [id number] conjugate, adjuvant, PF 4 completed Socorro Meczywor null, [place] [facility], 10/04/2024 10:07:01 influenza, unspecified formulation 2 completed Socorro Meczywor null, [place] [facility], 10/04/2024 10:07:01 Influenza, high-dose, trivalent, PF 4 completed Socorro Meczywor null, [place] [facility], 10/04/2024 10:07:01 Past Encounters Encounter ID Performer Location Encounter Start Date Encounter Closed Date Diagnosis/Indication Diagnosis SNOMED-CT Code Diagnosis ICD10 Code Diagnosis Note [id number] MD ANASTASIYA Ramirez MD [address] [facility] [place] [address] 04/04/2013 11:32:57 04/05/2013 10:02:57 [id number] oScorro ENGLISH MD [address] [facility] [place] [address] 04/04/2014 08:14:50 04/04/2014 12:03:01 Specialized medical examination [id number] Screening for malignant neoplasm of rectum 425484504 Screening mammography [id number] ANASTASIYA ENGLISH MD [address] [facility] [place] [address] 04/05/2015 08:21:32 04/05/2015 10:22:35 Specialized medical examination [id number] Screening for malignant neoplasm of rectum 856195941 Screening mammography [id number] MD ANASTASIYA Ramirez MD [address] [place] [address],[place] [address] 04/22/2016 07:59:33 04/22/2016 09:49:33 Specialized medical examination 47415173 Z01.419 Screening for malignant neoplasm of rectum 614103026 Z12.12 Screening mammography 24 580793 Z12.31 [id number] MD ANASTASIYA Ramirez MD [address] [place] [address], [place] [address] 04/30/2017 08:38:50 04/30/2017 11:41:15 Specialized medical examination 39255193 Z01.419 Screening for malignant neoplasm of rectum 423986519 Z12.12 Screening mammography 24 732130 Z12.31 [id number] MD ANASTASIYA Ramirez MD [address] [place] [address],[facility] [place] [address] 06/01/2018 09:40:08 06/01/2018 10:47:30 Specialized medical examination 22056558 Z01.419 Screening for malignant neoplasm of rectum 514628168 Z12.12 Screening mammography 24 874954 Z12.31 Tobacco de pendence syndrome 32804807 F17.200 [id number] MD ANASTASIYA Ramirez MD [address] [place] [address], [place] [address] 07/05/2019 10:18:29 07/05/2019 11:25:07 Specialized medical examination 52211492 Z01.419 Screening for malignant neoplasm of rectum 811776539 Z12.12 Screening mammography 24 194419 Z12.31 Tobacco de pendence syndrome 12720029 F17.290 [id number] MD ANASTASIYA Ramirez MD [address] [place] [address], [place] [address] 09/10/2020 10:55:34 09/10/2020 11:54:06 Specialized medical examination 72749515 Z01.419 Screening for malignant neoplasm of rectum 308691761 Z12.12 Screening mammography 24 766729 Z12.31 Influenza vaccine needed 5268006266 106 Z23 [id number] MD ANASTASIYA Ramirez MD [address] [place] [address], [place] [address] 09/03/2022 11:01:26 09/03/2022 12:10:37 Screening for malignant neoplasm of cervix 936308186 Z12.4 Screening mammography 24 902313 Z12.31 Screening for osteoporosis 892997768 N95.8 Tobacco de pendence syndrome 94044297 F17.290 [id number] MD ANASTASIYA Ramirez MD [address] [place] [address],[facility] [place] [address] 12/30/2022 09:38:26 12/30/2022 11:43:11 Tobacco dependence syndrome 07540174 F17.290 Osteopenia 611590168 M85 .88 [id number] MD ANASTASIYA Ramirez MD [address] [place] [address],[place] [address] 09/14/2024 14:23:02 09/14/2024 15:42:40 Screening for malignant neoplasm of cervix 737170526 Z12.4 Screening mammography 24 223418 Z12.31 Screening for osteoporosis 918449974 N95.8 Tobacco de pendence syndrome 67145765 F17.290 [id number] MD ANASTASIYA Ramirez MD [address] [place], [place] [address] [address] 10/04/2024 10:03:31 10/04/2024 12:04:47 Atypical glandular cells on cervical Papanicolaou smear 804546031 R87.619 [id number] MD ANASTASIYA Ramirez MD [address] [place] [address],[facility] [place] [address] 10/16/2024 09:31:55 10/16/2024 15:48:30 Cytologic finding 497854397 R87.612 Atypical g landular cells on cervical Papanicolaou smear 609692131 R87.619 Health Concerns Section Related Observation LastModified by Organization Detai ls LastModified Time None Recorded Concern Status LastModified by Organization Details LastModified Time None Recorded Advance Directives Directive None Recorded Payers Encounter Date Sequence Insurance Name Policy Number Policy Moyer Covered Member ID Moyer Member ID Guarantor Name 09/03/2022 1 [place] [employer] Megan M Palpini [id number] Megan Palpini 12/30/2022 1 [place] [employer] Megan M Palpini [id number] Megan Palpini 09/14/2024 2 [employer] (MEDICARE SUPPLEMENT) Megan Palpini [id number] Megan Palpini 09/14/2024 1 [place] [employer] Megan M Palpini [id number] Megan Palpini 10/04/2024 2 [employer] (MEDICARE SUPPLEMENT) Megan Palpini [id number] Megan Palpini 10/04/2024 1 [place] [employer] Megan M Palpini [id number] 2 Megan Palpini 10/16/2024 2 [employer] (MEDICARE SUPPLEMENT) Megan Palpini [id number] Megan Palpini 10/16/2024 1 [place] [employer] Megan M Palpini [id number] Megan Palpini Notes Date Note Type Note Provider Name and Address Organization Details Recorded Time 09/03/2022 text/html She is here for annual exam, doing well, has not had a mammogram wince 2018 though. Her mother is stil living with her. She is happily retired. She is a current every day smoker. Note from 2020: She is here for annual exam, is doing well. Her daughter is getting and is very happy. Her mother moved in with her and that is a strain.She would like a flu shot today. Anastasiya English MD [address] [place] [address],[address], [place], [address], [place] [facility], 09/03/2022 11:36:18 12/30/2022 text/html This visit is a phone telehealth visit. The patient consented to the visit by phone. The patient was at home at the time of the call and the provider and patient were the only people on the line. I was at [address] [place] [address], [place], at the time of the call. She had a recent bone density that showed her spine T-score dropped from -1.1 to -1.8 since 2018. She is an every day smoker, and does not get adequate calcium in her diet, does not take a supplement for calcium either. Note from 09/05: She is here for annual exam, doing well, has not had a mammogram wince 2018 though. Her mother is stil living with her. She is happily retired.She is a current every day smoker. Anastasiya English MD [address] [facility],[address], [place], [address], [employer] [facility], 12/30/2022 11:26:47 09/14/2024 text/html She is here for annual, doing well, current every day smokier. Bone density 2022 osteopenia. Overdue for mammogram, agrees to go now. Note from 2021: She is here for annual exam, doing well, has not had a mammogram wince 2018 though. Her mother is stil living with her. She is happily retired.She is a current every day smoker. Anastasiya English MD [address] [facility],[address], [place], [address], [place] [facility], 09/14/2024 14:59:00 10/04/2024 text/html She is here to discuss her recent pap which showed MARK favor neoplastic. Her prior pap was 09/05 and negative, was satisfactory. She is an every day smoker, 1 PPD. She is , , retired, not sexually active. Anastasiya English MD [address] [facility],[address], [place], [address], [employer] [facility], 10/04/2024 11:47:17 10/16/2024 text/html She is here for colpo, ecc and emb for pap with MARK favor neoplastic. ____ Note from 10/04/24: She is here to discuss her recent pap which showed MARK favor neoplastic.Her prior pap was 09/05 and negative, was satisfactory.She is an every day smoker, 1 PPD. She is , , retired, not sexually active.We discussed what this is and what the concerns are. She will return for colpo with ecc and also emb and she is scheduled to get a pelvic sonogram, she is aware we are ruling out cancer of the cervix or endometrium, but it could well likely be a benign finding. Anastasiya English MD [address] [facility],[address], [place], [address], [place] [facility], 10/16/2024 10:17:40 OBGyn Episode No OBEpisode recorded.
--- OUTSIDE RECORDS SUMMARY | 2025-01-04 12:53 | XMS_ITS | Clinical Summary ---
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 6 Active venlafaxine XR (EFFEXOR-XR) 75 mg 24 hr capsule Take 75 mg by mouth daily. Active omega-3 (FISH OIL) 360-1,200 mg capsule Take by mouth daily. Active lisinopriL (PRINIVIL,ZESTR IL) 20 mg tablet TAKE 1 TABLET BY MOUTH EVERY DAY 90 tablet 1 5 Active hydrocortisone (ANUSOL-HC) 2.5 % rectal cream APPLY SPARINGLY TO AFFECTED AREA 2 TO 4 TIMES A DAY 5 Active Active Problems Problem Noted Date Diagnosed Date Alcohol abuse 12/30/2023 Heart murmur 12/30/2023 Hyperlipidemia 12/30/2023 Hypertension 12/30/2023 Tubular adenoma of colon 06/02/2021 Overview (10/18/2024): CN 05/27/2021; repeat 5 years Osteopenia 01/12/2018 Diverticulosis 06/18/2015 Overview (10/18/2024): Incidental finding on colonoscopy 06/2015 Acne 05/12/2013 Depression 08/01/2011 Tobacco use disorder 08/09/2007 Encounters Date Type Department Care Team Description 01/01/2025 11:30 AM EST Office Visit Adult [address] [phone] Estela Dubois MD Routine general medical examination at a health care facility (Primary Dx); Primary hypertension; Anxiety and depression; Smoking; Abnormal cervical Papanicolaou smear, unspecified abnormal pap finding from Last 3 Months Immunizations Name Administration Dates Next Due Influenza trivalent, 0.5mL, preservative free (Fluarix; FluLaval; Fluzone) ages 6mo and older (Afluria) 3 years and older 08/18/2016,08/09/2007 Pfizer SARS-CoV-2 COVID-19, mRNA, LNP-S, preservative free 01/21/2021,12/31/2020 Pneumococcal conjugate 20 va lent (Prevnar 20, PCV 20) 2mo and older 12/30/2023 Pneumococcal polysaccharide 23 valent (Pneumovax 23) 2yo and older 02/22/2015 Td, Unspecified 04/06/2005 Tdap Tetanus diptheria acell ular pertussis (Boostrix; Adacel) 7yo and older 11/27/2022,07/30/2011 Surgical History Surgery Date Site/Laterality Comments COLONOSCOPY 10/2004 PROCEDURE: HISTORICAL COLONOSCOPY; COMMENT: Nl COLONOSCOPY 03/14/2010 PROCEDURE: HISTORICAL COLONOSCOPY; COMMENT: diverticulosis; repeat in five years COLONOSCOPY 06/17/2015 PROCEDURE: HISTORICAL COLONOSCOPY; COMMENT: tics; repeat in 5 yrs under propofol COLONOSCOPY 05/27/2021 PROCEDURE: HISTORICAL COLONOSCOPY; COMMENT: Tubular Adenoma; repeat 5 years Medical History Medical History Date Comments Depressive disorder, not els ewhere classified DX:Depressive disorder, not elsewhere classified Family history of malignant neoplasm of gastrointestinal tract 08/09/2007 DX:Family history of maligna nt neoplasm of gastrointestinal tract Tobacco use disorder 08/09/2007 DX:Tobacco use disorder Family history of ischemic h eart disease 08/09/2007 DX:Family history of ischemi c heart disease Tubular adenoma of colon 06/02/2021 DX:Tubu lar adenoma of colon Hyperlipidemia 12/30/2023 DX:Hyperlipidemi a Hyperlipidemia 12/30/2023 Hypertension 12/30/2023 Family History Medical History Relation Name Comments No Known Problems Brother 1 No Known Problems Brother 2 No Known Problems Brother 3 Heart attack Father ulcerative coli tis Hypertension Father Colon cancer Maternal Grandfather age 48 Dementia Mother Hypertension Paternal Grandfather Stroke Paternal Grandfather Hypertension Paternal Grandmother Relation Name Status Comments Brother 1 Alive Brother 2 Alive colon polyp Brother 3 Alive Father (Age 54) [place], cig Maternal Grandfather (Age 50s) r ectal cancer Maternal Grandmother Mother Alive colon polyps Paternal Grandfather Paternal Grandmother Social History Tobacco Use Types Packs/Day Years Used Date Smoking Tobacco: Every Day Cigarettes Smokeless Tobacco: Never Alcohol Use Standard Drinks/Week Comments Yes 7 (1 standard drink = 0.6 oz pur e alcohol) Comments Unknown Sex and Gender Information Value Date Recorded Sex Assigned at Not on file Legal Sex Female 2:32 AM EST Gender Identity Not on file Sexual Orientation Not on file Obstetrics History Last Filed Vital Signs Vital Sign Reading Time Taken Comments Blood Pressure 144/77 01/01/2025 11:46 AM EST Pulse 73 01/01/2025 11:46 AM EST Temperature 36.1 ??C (97 ??F) 01/01/2025 11:46 AM EST Respiratory Rate - - Oxygen Saturation - - Inhaled Oxygen Concentration - - Weight 68 kg (150 lb) 01/01/2025 11:46 AM EST Height 164.5 cm (5' 4.76 ) 01/01/2025 11:[address] Body Mass Index 25.14 01/01/2025 11:46 AM EST Plan of Treatment Upcoming Encounters Date Type Department Care Team (Late st Contact Info) Description 07/02/2025 1:00 PM EDT Office Visit Adult Medicine - [address] [phone] Estela Dubois MD [address] [place], [place] [id number] Health Maintenance Due Date Last Done Comments Hepatitis A Vaccines (1 of 2 - Risk 2-dose series) 1975 Zoster Vaccines (1 of 2) 2006 Medicare Annual Wellness Visit 10/24/2022 Social Influencers of Health Screening 10/24/2022 COVID-19 Vaccine ( season) 2024 10/27/2022, 08/20/2021, 01/21/2021, Additional history exists Falls Risk Assessment 12/30/2024 12/30/2023 Hypertension/CHF/CAD Annual BMP Blood Test 03/27/2025 03/27/2024, 03/27/2024 Breast Cancer Screening 09/06/2025 01/12/2018 Post poned from 01/12/2020 (Patient Refused) Depression Screening 01/01/2026 01/01/2025, 12/30/19 Colorectal Cancer Screening: Colonoscopy 05/27/2026 05/27/2021 Osteoporosis Screening (Bone Density Screening) 01/12/2028 01/12/2018 Cholesterol Screening (Lipid Panel) 12/30/2028 12/30/2023 RSV Immunization Patients 60+ Years Old (1 - 1-dose 75+ series) 2031 DTaP,Tdap,and Td Vaccines (4 - Td or Tdap) 11/27/2032 11/27/2022, 07/30/2011, 04/06/2005 Hepatitis C Screening Completed 05/11/2013 Pneumococcal Vaccine: 50+ Years Completed 12/30/2023, 02/22/2015, 02/13/2015 Influenza Vaccine Completed 09/10/2024, , 08/19/2022, Additional history exists HIB Vaccines Aged Out No longer eligi ble based on patient's age to complete this topic HPV Vaccines Aged Out No longer eligi ble based on patient's age to complete this topic Hepatitis B Vaccines Aged Out No long er eligible based on patient's age to complete this topic IPV Vaccines Aged Out No longer eligi ble based on patient's age to complete this topic MMR Vaccines Aged Out No longer eligi ble based on patient's age to complete this topic Meningococcal ACWY Vaccine Aged Out N o longer eligible based on patient's age to complete this topic Meningococcal B Vacine Aged Out No lo nger eligible based on patient's age to complete this topic RSV Immunization Patients Under 20 months Aged Out No longer eligible based on patient's age to complete this topic Varicella Vaccines Aged Out No longer eligible based on patient's age to complete this topic Procedures Procedure Name Priority Date/Time Associated Diagnosis Comments ANNUAL BMP BLOOD TEST Routine 03/27/2024 DEPRESSION SCREENING Routine 12/30/2023 FALLS RISK ASSESSMENT Routine 12/30/2023 LIPID PANEL Routine 12/30/2023 COLONOSCOPY Routine 05/27/2021 SCR MAMMO BI INCL CAD Routine 01/12/2018 9:55 AM EST Encounter for general adult medical examination without abnormal findings DXA BONE DENSITY STUDY 1+ SITS AXIAL SKEL Routine 01/12/2018 9:31 AM EST Encounter for general adult medical examination without abnormal findings Nicotine dependence, unspecified, uncomplicated HEPATITIS C SCREENING Routine 05/11/2013 from Last 3 Months or Most Recently Relevant to Health Maintenance Results * Annual BMP Blood Test (03/27/2024) Pathologist [facility] Annual BMP Blood Test Abstracted [facility] Provider HEALTH MAINTENANCE Final Result * Falls Risk Assessment (12/30/2023) [facility] Falls Risk Assessment Abstracted [facility] Provider HEALTH MAINTENANCE Final Result * Depression Screening (12/30/2023) Pathologist [facility] Depression Screening Abstracted [facility] Provider HEALTH MAINTENANCE Final Result * (ABNORMAL) Lipid panel (12/30/2023) [facility] LDL/HDL Ratio 3 0 - 4 Triglycerides 158(A) 0 - 150 mg/dL Cholesterol 195 0 - 200 mg/dL HDL 62 >=40 mg/dL LDL Cholesterol 102(A) 0 - 100 mg/dL Blood Venous blood specimen / Unknown [facility] Provider LAB BLOOD ORDERABLES Cristina l Result * Colonoscopy (05/27/2021) Colonoscopy Abstracted, no interpretation Anatomical Region Laterality Modality Other Historical Provider HEALTH MAINTENANCE Final Result * SCR MAMMO BI INCL CAD (01/12/2018 9:55 AM EST) Anatomical Region Laterality Modality Radiographic Uma ging 12/16/2017 9:43 AM EST Narrative 01/12/2018 10:26 AM EST This is a summary report. The complete report is available in the patient's medical record. If you cannot access the medical record, please contact the sending organization for a detailed fax or copy. Full field digital screening mammography, reviewed with CAD and compared to previous. ??The breasts are composed of fatty and fibroglandular tissue. ??Partially obscured nodule at the posterior one third of the lateral right breast is unchanged compared to the 2016 exam, suggesting benignity. No new suspicious mass, architectural distortion or suspicious calcifications are identified. IMPRESSION: : No mammographic evidence of malignancy. BI-RADS 2-benign. 5 year breast cancer risk assessment 1.3 % Lifetime breast cancer risk assessment 6.4 % Breast cancer risk category Low (<15%) Procedure Note Magdalena Waters, DO - 12/20/2023 This is a summary report. The complete report is available in thepatient's medical record. If you cannot access the medical record, pleasecontact the sending organization for a detailed fax or copy. Full field digital screening mammography, reviewed with CAD and comparedto previous. The breasts are composed of fatty and fibroglandular tissue.Partially obscured nodule at the posterior one third of the lateral rightbreast is unchanged compared to the 2016 exam, suggesting benignity. Nonew suspicious mass, architectural distortion or suspicious calcificationsare identified. IMPRESSION: : No mammographic evidence of malignancy. BI-RADS 2-benign. 5 year breast cancer risk assessment 1.3 % Lifetime breast cancer risk assessment 6.4 % Breast cancer risk category Low (<15%) Gloria Colunga MD IMG XR PROCEDURES Final Result * DXA BONE DENSITY STUDY 1+ SITS AXIAL SKEL (01/12/2018 9:31 AM EST) Anatomical Region Laterality Modality Bone Densitometr y 12/16/2017 9:48 AM EST Narrative 01/12/2018 1:25 PM EST DEXA SCAN: Lumbar Spine T-score is -1.1. ?? (SD relative to 20-29 y/o adult) Z-score is +0.5. ??(SD relative to age matched peers) This is considered osteopenia by WHO criteria. Left Femoral Neck T-score is -1.1. Z-score is +0.3. This is considered osteopenia by WHO criteria. Comparison exam(s): Compared to 04/01/2010, there is a statistically significant, 6.1% decrease in bone density measured throughout the lumbar spine. A 1.7% increase in bone density is measured at the left hip compared to 04/01/2010. IMPRESSION: Osteopenia by WHO criteria. This patient has a 9.1% risk of major osteoporotic fracture and a 1.3% risk of hip fracture over the next 10 years. (World Health Organization Fracture Risk Assessment) [facility] Department of Internal Medicine recommends using National Osteoporosis Foundation (NOF) guidelines in treatment decisions related to osteoporosis. NOF guidelines suggest considering treatment for postmenopausal women and men aged 50 or older presenting with the following: History of hip or vertebral fracture. T-score = -2.5 (DXA) at the femoral neck, total hip, or spine, after appropriate evaluation to exclude secondary causes. Low bone mass (T-score between -1.0 and -2.5 at the femoral neck or spine) AND a 10-year probability of a hip fracture = 3% OR a 10-year probability of a major osteoporosis-related fracture = 20% based on the [place]-adapted WHO algorithm Please note that all treatment decisions require clinical judgment and consideration of individual patient factors, including patient preferences, co-morbidities, previous drug use, risk factors not captured in the FRAX model (e.g., frailty, falls, vitamin D deficiency, increased bone turnover, interval significant decline in bone density) and possible under- or over-estimation of fracture risk by FRAX. Optional alternative screening schedule based on mona Calderon., [facility] December 03, 2011 for patients with osteopenia (based on hip BMD T-score) is as follows: * ??advanced osteopenia (T scores -2.00 to -2.49), BMD testing every year * ??moderate osteopenia (T scores -1.50 to -1.99), BMD testing every 5 years mild osteopenia or normal BMD (T scores -1.50 and higher), BMD testing every 15 years Procedure Note Magdalena Waters, DO - 12/20/2023 DEXA SCAN: Lumbar Spine T-score is -1.1. (SD relative to 20-29 y/o adult) Z-score is +0.5. (SD relative to age matched peers) This is considered osteopenia by WHO criteria. Left Femoral Neck T-score is -1.1. Z-score is +0.3. This is considered osteopenia by WHO criteria. Comparison exam(s): Compared to 04/01/2010, there is a statisticallysignificant, 6.1% decrease in bone density measured throughout the lumbar spine. A 1.7% increase inbone density is measured at the left hip compared to 04/01/2010. IMPRESSION: Osteopenia by WHO criteria. This patient has a 9.1% risk of majorosteoporotic fracture and a 1.3% risk of hip fracture over the next 10 years. (WorldHealth Organization Fracture Risk Assessment) [facility] Department of Internal Medicine recommendsusing National Osteoporosis Foundation (NOF) guidelines in treatment decisions related toosteoporosis. NOF guidelines suggest considering treatment for postmenopausal women and menaged 50 or older presenting with the following: History of hip or vertebral fracture. T-score = -2.5 (DXA) at the femoral neck, total hip, or spine, afterappropriate evaluation to exclude secondary causes. Low bone mass (T-score between -1.0 and -2.5 at the femoral neck or spine)AND a 10-year probability of a hip fracture = 3% OR a 10-year probability of a majorosteoporosis-related fracture = 20% based on the [place]-adapted WHO algorithm Please note that all treatment decisions require clinical judgment andconsideration of individual patient factors, including patient preferences, co- morbidities,previous drug use, risk factors not captured in the FRAX model (e.g., frailty, falls, vitaminD deficiency, increased bone turnover, interval significant decline in bone density) andpossible under- or over-estimation of fracture risk by FRAX. Optional alternative screening schedule based on porfirio Calderon al., NEJMJanuary 2011 for patients with osteopenia (based on hip BMD T-score) is as follows: * advanced osteopenia (T scores -2.00 to -2.49), BMD testing every year * moderate osteopenia (T scores -1.50 to -1.99), BMD testing every 5years mild osteopenia or normal BMD (T scores -1.50 and higher), BMD testingevery 15 years Gloria Colunga MD IMG DXA PROCEDURES Final Result * Hepatitis C Screening (05/11/2013) [facility] Hepatitis C Screening Abstracted Historical Provider HEALTH MAINTENANCE Final Result from Last 3 Months or Most Recently Relevant to Health Maintenance Insurance MEDICARE [facility] Care Teams Press Clippings Cutter And Paster Relationship Specialty Start Date End Date Estela Dubois MD [address] [place] [id number] PCP - General Internal Medicine 05/12/22
--- OUTSIDE RECORDS SUMMARY | 2025-01-04 12:53 | XMS_ITS | Encounter Summary ---
Author Organization [facility] [place] [address] Care Team Providers Care Employment Specialist/Program Manager Name Role Phone Estela Dubois MD Primary Care Provider Reason for Visit * Reason Comments Annual Exam Encounter Details Date Type Department Care Team ([facility] st Contact Info) Description 01/01/2025 11:30 AM EST Office Visit Adult Medicine [address] [phone] Estela Dubois MD [address] [place] [phone] Routine general medical examination at a health care facility (Primary Dx); Primary hypertension; Anxiety and depression; Smoking; Abnormal cervical Papanicolaou smear, unspecified abnormal pap finding Social History Tobacco Use Types Packs/Day Years [...] on file Sexual Orientation Not on file documented as of this encounter Last Filed Vital Signs Vital Sign Reading [...] Mass Index 25.14 01/01/2025 11:46 AM EST documented in this encounter Progress Notes * Estela Dubois MD - 01/01/2025 11:30 AM EST PLEASE BRING ALL YOUR MEDICATIONS- PILLS, INHALERS, OINTMENTS AND OVER THE COUNTER SUPPLEMENTS TO EACH VISIT. Bring home BP machine and readings to your next visit. * Estela Dubois MD - 01/01/2025 11:30 AM EST CHIEF COMPLAINT: Annual Exam IDENTIFIER: Megan Weeks is a 69 y.o. old female. HPI: Patient presents today for annual physical exam. She lives at home with 91yr mother. Is independent with ADLs and IADLs. 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 HTN-on lisinopril 20mg daily. BP today is slightly elevated. Not checking BP at home regularly. Denies any CP, SOB, palpitations Has been having dry cough. She smokes 1ppd. She is on effexor 75mg along with duloxetine for depression/anxiety for many years. [facility]. She never went to see derm-for her acne. 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 No abdominal discomfort, blood in stools or black stools : No dysuria, frequency or incontinence AUTO DAMAGE ESTIMATOR: No abnormal vaginal bleeding or abnormal vaginal discharge. MUSCULOSKELETAL: No joint pain or swelling, back pain, or muscle pain. SKIN: No lesions, rash or itching PSYCH: No sleep disturbance, mood disorder or recent psychosocial stressors. HEMATOLOGY/LYMPHOLOGY No prolonged bleeding, easy bruisability or swollen nodes ENDOCRINE: No unexplained weight loss. No polydipsia. No polyuria. No polyphagia. No goiter, lethargy or heat/cold intolerance NEURO: No persistent headache, syncope, seizures, weakness or numbness PAST MEDICAL HISTORY: Patient Active Problem List Diagnosis Date Noted Alcohol abuse 12/30/2023 Heart murmur 12/30/2023 Hyperlipidemia 12/30/2023 Hypertension 12/30/2023 Tubular adenoma of colon 06/02/2021 Osteopenia 01/12/2018 Diverticulosis 06/18/2015 Acne 05/12/2013 Depression 08/01/2011 Tobacco use disorder 08/09/2007 SOCIAL HISTORY: Social History Tobacco Use Smoking status: Every Day Current packs/day: 1.00 Types: Cigarettes Smokeless tobacco: Never Substance Use Topics Alcohol use: Yes Alcohol/week: 7.0 standard drinks of alcohol FAMILY HISTORY: Family Status Relation Name Status Mother Alive colon polyps Father at age 54 MD, cig Brother Alive Brother Alive colon polyp Brother Alive MGF at age 50s rectal cancer PGM PGF MGM No partnership data on file Family History Problem Relation Name Age of Onset Dementia Mother Heart attack Father ulcerative colitis Hypertension Father No Known Problems Brother No Known Problems Brother No Known Problems Brother Colon cancer Maternal Grandfather age 48 Hypertension Paternal Grandmother Hypertension Paternal Grandfather Stroke Paternal Grandfather ACTIVE MEDICATIONS: Outpatient Medications Marked as Taking for the 01/01/25 encounter (Office Visit) with Estela Dubois MD Medication Sig Dispense Refill cholecalciferol (VITAMIN D-3) 25 mcg (1,000 unit) tablet Take by mouth. hydrocortisone (ANUSOL-HC) 2.5 % rectal cream APPLY SPARINGLY TO AFFECTED AREA 2 TO 4 TIMES A DAY lisinopriL (PRINIVIL,ZESTRIL) 20 mg tablet TAKE 1 TABLET BY MOUTH EVERY DAY 90 tablet 1 omega-3 (FISH OIL) 360-1,200 mg capsule Take by mouth daily. venlafaxine XR (EFFEXOR-XR) 75 mg 24 hr capsule Take 75 mg by mouth daily. ALLERGIES: Patient has no known allergies. PHYSICAL EXAM: Blood pressure (!) 144/77, pulse 73, temperature 36.1 ??C (97 ??F), temperature source Temporal, height 1.645 m (64.76 ), weight 68 kg (150 lb). Body mass index is 25.14 kg/m??. BMI is 18.5 to 24.9 (within the normal range) and will be followed APPEARANCE: Alert and in no acute distress EYES: EOMI, conjunctiva and sclera normal. EARS: External ears normal. Canals clear. TMs normal. MOUTH/THROAT: no erythema or exudates. Moist oral mucosa NECK: Neck supple, no adenopathy, thyroid symmetric and of normal size HEART: RRR with normal S1 and S2, no murmurs, no gallops, no JVD appreciated LUNG: Clear to auscultation bilaterally. No accessory muscle use. No wheeze or crackles ABDOMEN: Soft, non-tender. Bowel sounds normoactive, no bruits. No organomegaly or palpable masses BACK: No pain to palpation with good flexion and extension EXTREMITIES: Extremities warm and well perfused without clubbing, cyanosis, or edema GAIT: Normal NEURO: Alert and oriented x 3. No gross motor deficits. No proximal muscle weakness. SKIN: Skin color, texture, turgor normal. No rashes or lesions PSYCH: Stable mood. Denies SI/HI LABS/IMAGING: Lab Results Component Value Date CHOL 195 12/30/2023 LDL 102 (A) 12/30/2023 HDL 62 12/30/2023 TRIG 158 (A) 12/30/2023 IMPRESSION: 1. Routine general medical examination at a health care facility 2. Primary hypertension 3. Anxiety and depression 4. Smoking 5. Abnormal cervical Papanicolaou smear, unspecified abnormal pap finding PLAN: Today we discussed the following: Advised to check BP daily and bring the log and machine to fu. C/w lisinopril 20mg daily, No intentions to quit smoking Would like to defer getting mammogram. 1. Health maintenance: The patient presented for an evaluation of general health. As part of this visit, we reviewed the following issues, which are considered an essential part of preventative health in this age group: - Breast cancer screening, which includes clinical exam and mammograms annually - deferred - Colon cancer screening - uptodate - Cervical cancer testing every 1-5 years - uptodate - Blood pressure annual screening performed - Cholesterol screening every five years - ordered - Osteoporosis prevention including calcium/vitamin D intake, weight bearing exercise & smokingcessation - Counseling of injury prevention including fire prevention, smoke alarms and seat belt usage - Screening for depression - over the past TWO WEEKS, been bothered by little INTEREST or PLEASURE in doing things or by feeling DOWN, DEPRESSED, or HOPELESS? No - Eyes: Uptodate - Dental: Uptodate with q6 month cleaning - Recommendations about immunizations - patient is up-to-date on immunizations - Genetic cancer risk screening - NO INDICATION: Hereditary Cancer Syndrome Risk Assessment completed and evaluated. No indication found for genetic testing at this time. - In addition to reviewing these issues, I have reviewed the following sections of the chart: Past Medical History, Social History, and Social History Fu in 6months Orders Placed This Encounter Procedures Comprehensive metabolic panel Standing Status: Future Standing Expiration Date: 01/01/2026 Lipid panel with reflex to direct LDL Standing Status: Future Standing Expiration Date: 01/01/2026 Estela Dubois MD on 01/01/2025 at 12:29 PM EST documented in this encounter Plan of Treatment Upcoming Encounters Date Type Department Care Team (Late st Contact Info) Description 07/02/2025 1:00 PM EDT Office Visit Adult Medicine - [address] [phone] Estela Dubois MD [address] [place] [id number] Scheduled Orders Name Type Priority Associated Diagnoses Orde r Schedule Comprehensive metabolic panel Lab Routine Routine general medical examination at a health care facility Primary hypertension Anxiety and depression Expected: 01/01/2025 (Approximate), Expires: 01/01/2026 Lipid panel with reflex to direct LDL Lab Routine Routine general medical examination at a health care facility Primary hypertension Anxiety and depression 1 Occurrences starting 01/01/2025 until 01/01/2026 documented as of this encounter Visit Diagnoses Diagnosis Routine general medical examination at a health care facility- Primary Primary hypertension Unspecified essential hypertension Anxiety and depression Smoking Tobacco use disorder Abnormal cervical Papanicolaou smear, unspecified abnormal pap finding documented in this encounter Historical Medications * This list may reflect changes made after this encounter. hydrocortisone (ANUSOL-HC) 2.5 % rectal cream APPLY SPARINGLY TO AFFECTED AREA 2 TO 4 TIMES A DAY 12/07/2024 added in this encounter Care Teams Employment Specialist/Program Manager Relationship Specialty Start Date End Date Estela Dubois MD [address] [place] [id number] PCP - General Internal Medicine 05/12/22 documented as of this encounter
== END 2025-01-04 12:01 | disposition home or self-care (01) ==
LOC: HO.HOP 11:32
PROVIDERS: PCP Family Medicine; Visit Provider Psychiatry & Neurology Psychiatry
DX: F40.10 Social phobia, unspecified (principal)
CPT/HCPCS: 99214

== ENCOUNTER → 2025-01-04 11:32 | Outpatient (BNVA) | payer MEDICARE, OTHER, SELFPAY | PROVIDERS: PCP Family Medicine; Visit Provider Psychiatry & Neurology Psychiatry | DX: F40.10 Social phobia, unspecified (principal) | CPT/HCPCS: 99212 ==

== ENCOUNTER 2025-07-18 13:38 | Outpatient (AMB) | payer MEDICARE, OTHER, SELFPAY ==
--- NOTE | 2025-07-18 13:53 | A.OFFPSYCH_ITS ---
Intake Intake Visit Reasons: depression Allergies No Known Allergies Allergy (Verified 02/15/23 15:21) HPI- Psychiatric Chief Complaint: depression HPI Narrative: Patient seen psychiatric follow-up. Patient had urgent hysterectomy oophorectomy in February there was a concern regarding cancer which turned out to be negative. At that time the patient's mother who had been living with her was placed in locked assisted living which he currently is living in. Patient does feel that there is a weight off shoulders. 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 Past Psychiatric History: past hx recurrent depression x years chronic social anxiety Mental Status Exam Mental Status Exam Patient Appearance: Well Grooomed Patient Orientation: Person, Place, Time and Situation Level of Consciousness: Awake Patient Behavior: Appropriate Mood Description: Calm, Happy and Appropriate Affect Description: Appropriate Patient Cognition Impaired: No Ability to Follow Directions: Excellent Speech Pattern: Clear and Appropriate Memory Description: Intact Hallucinations: None Delusions: Not Present Thought Process: Intact Thought Content: positive for Intact, negative for Suicidal Ideation or negative for Homicidal Ideation Judgement: Good Assessment and Plan Assessment & Plan (1) Dysthymia: Status: Acute Code(s): F34.1 - Dysthymic disorder Assessment and Plan: Generally appears to be in remission (2) Social anxiety disorder: Status: Resolved Code(s): F40.10 - Social phobia, unspecified Plan Patient generally doing well has occasional insomnia can try low-dose Ambien which she will only take intermittently. Does find doxepin 10 mg helpful may also be helpful for anxiety during the day continue Effexor 75 mg helpful in blocking depression and anxiety symptoms. Patient appears to have made a good adjustment and has now retired where she is not having take care of her mother on a daily basis. This was a hard decision but when that she is feeling comfortable with. Medications: New zolpidem 5 mg PO BEDTIME PRN 20 tabs 1RF sleep Refilled doxepin 10 mg PO BEDTIME 90 caps 1RF 90 days venlafaxine ER 75 mg PO DAILY 90 caps 1RF Counseling and coordination of Care Details-Self Mgmt counseling: Issues related to caring for mother current situation future plans Medication management counseling: Effectiveness, Side effects and Dosing range Diagnosis and Prognosis Counseling: Adequacy of current interventions Details: I spent [38] minutes reviewing the record, seeing the patient and documenting in the medical record. Counseling provided to the patient/caregiver as outlined below. Addressed patient/caregiver concerns regarding current medication regime including effective adherence. Addressed patient/caregiver concerns regarding diagnosis and prognosis including accuracy of diagnosis, prognosis over time, impact of diagnosis. Addressed patient/caregiver concerns regarding impact of recent stressors. 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
--- OUTSIDE RECORDS SUMMARY | 2025-07-18 15:48 | XMS_ITS | Clinical Summary ---
Author Organization [facility] [address] [facility] lding Address [address] [place] [address] Phone Care Team Providers Care Family Protection Specialist Name Role Phone Estela Dubois MD Primary Care Provider Allergies No known active allergies Medications cholecalciferol (VITAMIN D-3) 25 mcg (1,000 unit) tablet Take by mouth. 08/18/20 16 Active venlafaxine XR (EFFEXOR-XR) 75 mg 24 hr capsule Take 75 mg by mouth daily. Active omega-3 (FISH OIL) 360-1,200 mg capsule Take by mouth daily. Active lisinopriL (PRINIVIL,ZESTRIL) 20 mg tablet Take 1 tablet (20 mg total) by mouth 1 (one) time each day. 90 tablet 1 07/02/20 25 Active doxepin (SINEquan) 10 mg capsule Take 1 capsule (10 mg total) by mouth at bedtime. Per psychiatrist Active atorvastatin (LIPITOR) 10 mg tabletIndications: Mixed hyperlipidemia Take 1 tablet (10 mg total) by mouth 1 (one) time each day. 30 tablet 6 07/02/20 25 Active hydrocortisone (ANUSOL-HC) 2.5 % rectal cream APPLY SPARINGLY TO AFFECTED AREA 2 TO 4 TIMES A DAY 12/07/19 25 025 Discontin ued(Thera py completed ) lisinopriL (PRINIVIL,ZESTRIL) 20 mg tablet TAKE 1 TABLET BY MOUTH EVERY DAY 90 tablet 1 05/23/20 25 025 Discontin ued(Reord er) Active Problems Problem Noted Date Diagnosed Date S/P total hysterectomy 07/02/2025 Anxiety and depression 07/02/2025 Alcohol abuse 12/30/2023 Heart murmur 12/30/2023 Hyperlipidemia 12/30/2023 Hypertension 12/30/2023 Tubular adenoma of colon 06/02/2021 Overview (10/18/2024): CN 05/27/2021; repeat 5 years Osteopenia 01/12/2018 Diverticulosis 06/18/2015 Overview (10/18/2024): Incidental finding on colonoscopy 06/2015 Acne 05/12/2013 Depression 08/01/2011 Tobacco use disorder 08/09/2007 Encounters Date Type Department Care Team Description 07/09/2025 11:00 AM EDT Clinical Support [facility] [address] [phone] Pre-employment drug screening (Primary Dx) 07/02/2025 1:00 PM EDT Office Visit Adult Medicine [address] [phone] Estela Dubois MD Primary hypertension (Primary Dx); Mixed hyperlipidemia; Hyponatremia; Anxiety and depression; Heart murmur; S/P total hysterectomy from Last 3 Months Immunizations Name Administration Dates Next Due Influenza trivalent, 0.5mL, preservative free (Fluarix; FluLaval; Fluzone) ages 6mo and older (Afluria) 3 years and older 08/18/2016,08/09/2007 [employer] SARS-CoV-2 COVID-19, mRNA, LNP-S, preservative free 01/21/2021,12/31/2020 [...] COLONOSCOPY; COMMENT: Tubular Adenoma; repeat 5 years HYSTERECTOMY TOTAL CERVIX REMOVED 03/12/2025 at [facility] by Jeremiah Medical History Medical History Date Comments Depressive [...] polyp Brother 3 Alive Father (Age 54) NE, cig Maternal Grandfather (Age 50s) r ectal cancer Maternal Grandmother Mother Alive colon polyps Paternal Grandfather Paternal Grandmother Social History Tobacco Use Types Packs/Day Years Used Date Smoking Tobacco: Every Day Cigarettes Smokeless Tobacco: Never Alcohol Use Standard Drinks/Week Comments Yes 7 (1 standard drink = 0.6 oz pur e alcohol) Comments No Sex and Gender Information Value Date Recorded Sex Assigned at Not on file Legal Sex Female 2:32 AM EST Gender Identity Not on file Sexual Orientation Not on file Obstetrics History Last Filed Vital Signs Vital Sign Reading Time Taken Comments Blood Pressure 128/78 07/02/2025 1:06 PM EDT Pulse 84 07/02/2025 12:47 PM EDT Temperature 36.3 C (97.3 F) 07/02/2025 12:47 PM EDT Respiratory Rate 16 07/02/2025 12:47 PM EDT Oxygen Saturation - - Inhaled Oxygen Concentration - - Weight 67 kg (147 lb 9.6 oz) 07/02/2025 12:47 PM EDT Height 165 cm (5' 4.96 ) 07/02/2025 12:47 PM EDT Body Mass Index 24.59 07/02/2025 12:47 PM EDT Plan of Treatment Upcoming Encounters Date Type Department Care Team (Late st Contact Info) Description 08/09/2025 1:15 PM EDT Appointment Bone Density - [address] [phone] 01/03/2026 10:00 AM EST Office Visit Adult Medicine - [place] [address] [place] [phone] Javi Santos PA [address] [place] [address] Health Maintenance Due Date Last Done Comments Hepatitis A Vaccines (1 of 2 - Risk 2-dose series) 1975 Zoster Vaccines (1 of 2) 2006 Medicare Annual Wellness Visit 10/24/2022 Social Influencers of Health Screening 10/24/2022 Depression Screening 11/15/2024 12/30/2023 Falls Risk Assessment 12/30/2024 12/30/2023 COVID-19 Vaccine ( season) 2025 10/27/2022, 08/20/2021, 01/21/2021, Additional history exists Influenza Vaccine (#1) 2025 , 09/24/2022, 08/19/2022, Additional history exists Breast Cancer Screening 09/06/2025 01/12/2018 Post poned from 01/12/2020 (Patient Refused) Colorectal Cancer Screening: Colonoscopy 05/27/2026 05/27/2021 Hypertension/CHF/CAD Annual BMP Blood Test 07/02/2026 07/02/2025, 01/11/2025, 03/27/2024, Additional history exists Osteoporosis Screening (Bone Density Screening) 01/12/2028 01/12/2018 Cholesterol Screening (Lipid Panel) 07/02/2030 07/02/2025, 01/11/2025, 12/30/2023 RSV Immunization Adult Patients (1 - 1-dose 75+ series) 2031 DTaP,Tdap,and Td Vaccines (4 - Td or Tdap) 11/27/2032 11/27/2022, 07/30/2011, 04/06/2005 Hepatitis C Screening Completed 05/11/2013 Pneumococcal Vaccine: 50+ Years Completed 12/30/2023, 02/22/2015, 02/13/2015 HIB Vaccines Aged Out No longer eligi [...] age to complete this topic Meningococcal B Vaccine Aged Out No l onger eligible based on patient's age to complete this topic RSV Immunization Patients Under 20 months Aged Out No longer eligible based on patient's age to complete this topic Varicella Vaccines Aged Out No longer eligible based on patient's age to complete this topic Procedures Procedure Name Priority Date/Time Associated Diagnosis Comments POC URINE DRUG SCREEN Routine 07/09/2025 1:44 PM EDT Pre-employment drug screening LIPID PANEL WITH REFLEX TO DIRECT LDL Routine 07/02/2025 1:12 PM EDT Primary hypertension Mixed hyperlipidemia Hyponatremia Anxiety and depression Heart murmur COMPREHENSIVE METABOLIC PANEL Routine 07/02/2025 1:12 PM EDT Primary hypertension Hyponatremia DEPRESSION SCREENING Routine 12/30/2023 FALLS RISK ASSESSMENT Routine 12/30/2023 COLONOSCOPY Routine 05/27/2021 SCR MAMMO [...] Recently Relevant to Health Maintenance Results * POC Urine Drug Screen (07/09/2025 1:44 PM EDT) Amphetamine Screen, Ur POC Negative Negative Benzodiazepines, Ur POC Negative Negative Cocaine, Ur POC Negative Negative Methamphetamine Screen, Ur POC Negative Negative Opiate Scrn, Ur POC Negative Negative THC, Ur POC Negative Negative Temperature, Ur POC 96 Urine Urine specimen obtained by clean catch procedure / Unknown 07/09/2025 1:44 PM EDT Timmy Madsen MD POINT OF CARE TEST ENTER/EDIT OR DERABLES Final Result * (ABNORMAL) Lipid panel with reflex to direct LDL (07/02/2025 1:12 PM EDT) Cholesterol 214(H) 0 - 200 mg/dL LAB CHEMISTRY METHOD 07/02/2025 3:07 PM EDT [facility] Triglycerides 227(H) 0 - 150 mg/dL LAB CHEMISTRY METHOD 07/02/2025 3:07 PM EDT [facility] HDL 60 >=40 mg/dL LAB CHEMISTRY METHOD 07/02/2025 3:07 PM EDT [facility] LDL Calculated 109(H) 0 - 100 mg/dL LAB CHEMISTRY METHOD 07/02/2025 3:07 PM EDT [facility] Comment:Estimated LDL Calcul ated using equation: Total cholesterol - HDL cholesterol - (Triglycerides/5) VLDL Cholesterol Miguel Angel 45.4 mg/dL LAB CHEMISTRY METHOD 07/02/2025 3:07 PM EDT [facility] Non HDL Chol. (LDL+VLDL) 154(H) <145 mg/dL LAB CHEMISTRY METHOD 07/02/2025 3:07 PM [facility] Chol/HDL Ratio 3.6 0.0 - 4.4 LAB CHEMISTRY METHOD 07/02/2025 3:07 PM [facility] Blood Venous blood specimen / Unknown Venipuncture / Unknown 07/02/2025 1:12 PM EDT 07/02/2025 1:12 PM EDT us Estela Dubois MD LAB BLOOD ORDERABLES F inal Result [facility] [address] [place] [address], [place] [phone] * (ABNORMAL) Comprehensive metabolic panel (07/02/2025 1:12 PM EDT) Sodium 133 133 - 145 mmol/L LAB CHEMISTRY METHOD 07/02/2025 3:07 PM [facility] Potassium 4.0 3.5 - 5.5 mmol/L LAB CHEMISTRY METHOD 07/02/2025 3:07 PM [facility] Chloride 97 96 - 110 mmol/L LAB CHEMISTRY METHOD 07/02/2025 3:07 PM [facility] CO2 32 21 - 32 mmol/L LAB CHEMISTRY METHOD 07/02/2025 3:07 PM [facility] Anion Gap 4 3 - 11 LAB CHEMISTRY METHOD 07/02/2025 3:07 PM [facility] Glucose 115(H) 70 - 100 mg/dL LAB CHEMISTRY METHOD 07/02/2025 3:07 PM [facility] BUN 12 5 - 25 mg/dL LAB CHEMISTRY METHOD 07/02/2025 3:07 PM [facility] Creatinine 0.73 0.50 - 1.10 mg/dL LAB CHEMISTRY METHOD 07/02/2025 3:07 PM [facility] eGFR 89 >=60 mL/min/1. 73m2 LAB CHEMISTRY METHOD 07/02/2025 3:07 PM T [facility] Comment:Calculation based on the Chronic Kidney Disease Epidemiology Collaboration (CKD-EPI) equation refit without adjustment for race. BUN/Creatinine Ratio 16.4 LAB CHEMISTRY METHOD 07/02/2025 3:07 PM [facility] Calcium 10.0 8.5 - 10.5 mg/dL LAB CHEMISTRY METHOD 07/02/2025 3:07 PM [facility] AST (SGOT) 18 10 - 42 unit/L LAB CHEMISTRY METHOD 07/02/2025 3:07 PM [facility] ALT (SGPT) 19 10 - 60 unit/L LAB CHEMISTRY METHOD 07/02/2025 3:07 PM [facility] Alkaline Phosphatase 81 42 - 121 unit/L LAB CHEMISTRY METHOD 07/02/2025 3:07 PM [facility] Total Protein 7.8 6.0 - 8.0 g/dL LAB CHEMISTRY METHOD 07/02/2025 3:07 PM [facility] Albumin 3.9 3.2 - 5.0 g/dL LAB CHEMISTRY METHOD 07/02/2025 3:07 PM [facility] Total Bilirubin 0.3 0.0 - 1.4 mg/dL LAB CHEMISTRY METHOD 07/02/2025 3:07 PM [facility] Blood Venous blood specimen / Unknown Venipuncture / Unknown 07/02/2025 1:12 PM EDT 07/02/2025 1:12 PM EDT us Estela Dubois MD LAB BLOOD ORDERABLES F inal Result [facility] [address] [place] [address], [place] [phone] * Falls Risk Assessment (12/30/2023) Falls Risk Assessment Abstracted [facility] Provider MD HEALTH MAINTENANCE Final Result * Depression Screening (12/30/2023) Depression Screening Abstracted [facility] Provider [facility] Final Result * Colonoscopy (05/27/2021) Colonoscopy Abstracted, no interpretation Anatomical Region Laterality Modality Other [facility] Provider [facility] Final Result * SCR MAMMO BI INCL [...] reviewed with CAD and compared to previous. The breasts are composed of fatty and fibroglandular tissue. Partially obscured nodule at the posterior one third [...] risk category Low (<15%) Procedure Note Magdalena Waters DO - 12/20/2023 This is a summary [...] % Breast cancer risk category Low (<15%) us Gloria Colunga MD IMG XR PROCEDURES Final [...] (World Health Organization Fracture Risk Assessment) [facility] Department of Internal Medicine recommends using National [...] alternative screening schedule based on mona Calderon., [facility] December 03, 2011 for patients with osteopenia (based on hip BMD T-score) is as follows: * advanced osteopenia (T scores -2.00 to -2.49), BMD testing every year * moderate osteopenia (T scores -1.50 to -1.99), BMD testing every 5 years mild osteopenia or normal BMD (T scores -1.50 and higher), BMD testing every 15 years Procedure Note Magdalena Waters, - 12/20/2023 DEXA SCAN: Lumbar Spine T-score [...] years. (WorldHealth Organization Fracture Risk Assessment) [facility] Department of Internal Medicine recommendsusing National Osteoporosis [...] alternative screening schedule based on mona Calderon., [facility] for patients with osteopenia (based on [...] Final Result * Hepatitis C Screening (05/11/2013) [facility] Hepatitis C Screening Abstracted Historical Provider HEALTH MAINTENANCE Final Result from Last 3 Months or Most Recently Relevant to Health Maintenance Insurance [employer] Care Teams Family Protection Specialist Relationship Specialty Start Date End Date Estela Dubois MD [address] [place] [id number] PCP - General Internal Medicine 05/12/22
--- OUTSIDE RECORDS SUMMARY | 2025-07-18 15:48 | XMS_ITS ---
Author Name [facility] Organization Unknown Care Team Organization Name Specialty Phone Email Start Date End [facility] 07/04/2025
== END 2025-07-18 14:28 | disposition home or self-care (01) ==
LOC: HO.HOP 13:38
PROVIDERS: PCP Family Medicine; Visit Provider Psychiatry & Neurology Psychiatry
DX: F34.1 Dysthymic disorder (principal); F40.10 Social phobia, unspecified
CPT/HCPCS: 90833; 99213

== ENCOUNTER → 2025-07-18 13:38 | Outpatient (BNVA) | payer MEDICARE, OTHER, SELFPAY | PROVIDERS: PCP Family Medicine; Visit Provider Psychiatry & Neurology Psychiatry | DX: F34.1 Dysthymic disorder (principal); F40.10 Social phobia, unspecified; Z79.899 Other long term (current) drug therapy | CPT/HCPCS: 99212 ==

== ENCOUNTER 2025-10-25 14:00 | Outpatient (AMB) | payer MEDICARE, OTHER, SELFPAY ==
--- NOTE | 2025-10-25 14:32 | A.OFFPSYCH_ITS ---
Intake Intake Visit Reasons: depression Allergies No Known Allergies Allergy (Verified 02/15/23 15:21) Medication List - Last Reconciled 10/25/25 by Uli Catalan MD atorvastatin 10 mg PO DAILY doxepin 10 mg PO BEDTIME 90 days lisinopril 20 mg PO DAILY venlafaxine ER 75 mg PO DAILY zolpidem 5 mg PO BEDTIME PRN HPI- Psychiatric Chief Complaint: depression HPI Narrative: The patient presented for a psychiatric follow-up to discuss medication management and overall mental health status. Patient expressed for use of doximity scribe HPI Patient is a 70-year-old female with a long history of past significant clinical depression mixed with anxiety that has been stable for a number of years. 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 Patient has been stable on venlafaxine for a number of years and has been sleeping well with low-dose doxepin. We have discussed potential chronic wrist with certain sleep aids. The patient reported feeling generally well but expressed concerns about potentially experiencing depression and anxiety attacks again in the future this was in relationship to not having a primary site provider that she could reach out to, in relationship to discussion of having her primary care provider manage her medications. The patient feared that the primary care provider might not continue prescribing the necessary medications due to burnout and a lack of understanding of mental health conditions. 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 The patient mentioned experiencing occasional night sweats and waking up around three in the morning, but typically being able to return to sleep without issues. The patient reported taking Doxepin daily and Zolpidem as needed for sleep, noting it had been over a month since the last use. The patient expressed fear of potential cognitive issues related to medication use but acknowledged being on a low dose of Doxepin. BACKGROUND The patient reported no new allergies or medications. The patient disclosed being on lisinopril for blood pressure and a cholesterol medication, atorvastatin (referred to as Pitorium ). The patient mentioned experiencing cataract formation in the right eye but denied any other physical symptoms such as glaucoma or macular degeneration. The patient expressed concern about their primary care provider's attitude towards mental health treatment continuity. ASSESSMENT The differential diagnosis included generalized anxiety disorder and major depressive disorder, both currently in remission given th Past Psychiatric History: past hx recurrent depression x years chronic social anxiety Mental Status Exam Mental Status Exam Narrative: Patient was casually dressed her mood was described as good with a full range of affect. The patient expressed satisfaction with the current work-life balance. The patient reported enjoying working part-time and feeling a sense of purpose and camaraderie in the workplace. Content focused on changes in her life and stability on current regimen. No SI or HI future oriented good insight Assessment and Plan Assessment & Plan (1) Major depression in full remission: Status: Acute Code(s): F32.5 - Major depressive disorder, single episode, in full remission (2) Social anxiety disorder: Status: Resolved Code(s): F40.10 - Social phobia, unspecified Plan Patient has been stable for an extended period of time and will ask her primary care physician to see if possible for them to prescribing psychiatric medication. Otherwise the patient will be seen in 3-4 months , discussion relationship day healthy coping strategies and sleep Medications: Changed From doxepin 10 mg PO BEDTIME 90 days 90 caps 1RF To doxepin (Silenor) 6 mg PO BEDTIME PRN 90 tabs 1RF sleep 90 days Refilled doxepin 10 mg PO BEDTIME 90 caps 1RF 90 days venlafaxine ER 75 mg PO DAILY 90 caps 1RF Counseling and coordination of Care Medication management counseling: Effectiveness and Side effects Diagnosis and Prognosis Counseling: Adequacy of current interventions Details: I spent [] minutes reviewing the record, seeing the patient and documenting in the medical record. Counseling provided to the patient/caregiver as outlined below. Addressed patient/caregiver concerns regarding current medication regime including effective adherence. Addressed patient/caregiver concerns regarding diagnosis and prognosis including accuracy of diagnosis, prognosis over time, impact of diagnosis. Addressed patient/caregiver concerns regarding impact of recent stressors. 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
--- OUTSIDE RECORDS SUMMARY | 2025-10-25 21:26 | XMS_ITS | Continuity of Care Document ---
Author Organization [place] - [facility],, ANASTASIYA LÓPEZ MD Address [address] [address] Care Team Providers Care Field Court Researcher Name Role Phone ENID RAMIREZ Primary Care Provider Assessment No assessment recorded. Plan of Treatment Reminders Order Date Submit Date Provider Last Modified By Organization Details Last Modified Time Details Appointments None record ed. Lab None record ed. Referral None record ed. Procedures None record ed. Surgeries None record ed. Imaging None record ed. Medication Orders None record ed. Patient TargetsNo targets recorded. Patient Instructions Encounter Date Encounter Id Patient Instructions Last Modified By Organization Details Last Modified Time 08/16/2025 [id number] deciding about using medicines to quit smoking Not available 08/16/2025 13:56:55 Quitting Tobacco : [email or web address] Not available 08/16/2025 13:56:55 She is here to discuss her recent bone density. it showed osteopenia with a 6% decrease in the hip which was statistically significant. She had been referred to [facility] in 01/[facility]25, after repeat pap still had MARK on it after negative testing earlier. She had the hysterectomy wiht Dr. Daniels in [facility], no pathology was found. Note from 01/2025: She had a pap with MARK favor neoplastic. We did colpo, ecc and emb, and no abnormal cells were found, on 10/16/24. Pap taken. If negative then resume annual screening pap. If abnormal then order pelvic sonogram and refer to [facility]. ____ We discussed her diagnosis of osteopenia. We reviewed the results [...] she might need this in the future. We also discussed her tobacco use, she had quit for 7 years once, when her children were little. She can go for 8 hours without a cigarette, however she enjoys the ritual and the relaxation she gets from smoking. We discussed smoking cessation in detail. She is aware that tobacco use contributes to bone loss. She will repeat the bone density testing in 2 years to assess her progress.She is aware that if her bone density diminished significantly in the intervening 2 years she may need medical therapy at that time. She is encouraged to try this preventive therapy first. Return for routine annual exam as scheduled. Face to face discussion, chart review and coordination of care: 25 minutes Not available 08/16/2025 13:59:19 Reason for Referral None Reported. Results Created Date Observation Date Name Description Value Unit Range Abnormal Flag Note LastModifiedBy Organization Detail LastModifiedTime 08/09/2008/09/2025 bone densi ty No observ ation record ed. [email or web address] [facility] (Human Resources) [address] [place], [address], 08/10/2025 09:16:15 Result Notes None recorded. Problems Name Problem SNOMED Code Status Onset Date Resolution Date Notes Provider Name and Address Organization Details Recorded Time Depressive disorder [id number] Active Anastasiya López MD [address], [place], [address] , [place] [facility], 6 08:21:32 Tobacco dependence syndrome 87197087 Active 018 Anastasiya López MD [address], [address] , [place] [facility], 8 10:17:23 Osteopenia 962249802 Active 023 Anastasiya López MD [address], [place], [phone], [place] [facility], 11:25:49 Problem Notes None recorded. Procedures Surgical History Date Name Laterality Status Provider Name and Address Organization Details Recorded Time 03/12/20 25 total hysterectomy completed Socorro Santoyo [place] - [facility], 08/16/2025 13:22:38 11/24/19 25 Most Recent Mammogram completed Socorro Aviles [facility], 08/16/2025 13:22:09 10/16/20 24 Colposcopy completed Anastasiya López MD [address], [place], [address], [place] [facility], 10/16/2024 10:11:13 10/16/20 24 Endometrial Biopsy completed Anastasiya López MD [address], [place], [address], [place] [facility], 10/16/2024 10:11:34 11/24/19 23 Most Recent Bone Density completed Socorro Aviles [facility], 09/04/2024 09:43:32 Imaging Results None recorded. Procedure Notes None recorded. Medical Equipment None Reported. Allergies No known drug allergies Medications Name Sig Start Date Stop Date Status Note LastModified by Organization Details LastModified Time venlafaxine ER 37.5 mg capsule,ext ended release 24 hr TAKE 3 CAPSULES BY MOUTH DAILY 09/03 completed Not Available Not Available Not Available acetaminoph en 325 mg tablet TAKE 2 TABLETS BY MOUTH EVERY 6 HOURS NEEDED FOR PAIN 08/16 completed Not Available Not Available Not Available venlafaxine ER 75 mg capsule,ext ended release 24 hr TAKE 1 CAPSULE BY MOUTH EVERY DAY active Not Available Not Available No t Available trazodone 50 mg tablet TAKE 1/2-1 TABLET BY MOUTH AT BEDTIME 09/03 completed Not Available Not Available Not Available atorvastati n 10 mg tablet TAKE 1 TABLET BY MOUTH 1 TIME EACH DAY. active Not Available Not Available No t Available azithromyci n 250 mg tablet TAKE 2 TABLETS BY MOUTH TODAY, THEN TAKE 1 TABLET DAILY FOR 4 DAYS 09/03 completed Not Available Not Available Not Available senna 8.6 mg tablet TAKE 1 TABLET BY MOUTH DAILY AT BEDTIME NEEDED FOR CONSTIPAT ION active Not Available Not Available No t Available lisinopril 20 mg tablet TAKE 1 [...] mg capsule TAKE 1 CAPSULE BY MOUTH EVERYDAY AT BEDTIME active Not Available Not Available No t Available oxycodone-a cetaminophe n 5 mg-325 mg tablet 09/10 completed Not Available Not Available Not Available hydrocortis one 2.5 % topical cream with perineal applicator APPLY SPARINGLY TO AFFECTED AREA 2 TO 4 TIMES A DAY active Not Available Not Available No t Available NTS Step 1 21 mg/24 hr transdermal 24 hour patch active Not Available Not Available Not Available Gentle Laxative (bisacodyl) 5 mg tablet,edwin yed release TAKE 1 TABLET BY MOUTH DAILY,FOL LOW THE INSTRUCTI ONS DISCUSSED active Not Available Not Available No t Available lisinopril 10 mg tablet TAKE 2 TABLETS BY MOUTH EVERY DAY active Not Available Not Available No t Available zolpidem 5 mg tablet TAKE 1 TABLET BY MOUTH DAILY AT BEDTIME NEEDED FOR SLEEP active Not Available Not Available No t Available ibuprofen 600 mg tablet TAKE 1 TABLET BY MOUTH EVERY 6 HOURS NEEDED FOR PAIN WITH FOOD/MILK active Not Available Not Available No t Available zolpidem 10 mg tablet active Not Available Not Available No t Available simethicone 80 mg chewable tablet CHEW 1 TABLET 4 TIMES A DAY NEEDED FOR GAS active Not Available Not Available No t Available oxycodone 5 mg tablet TAKE 0.5-1 TABLET BY MOUTH EVERY 4-6 HOURS NEEDED FOR PAIN 08/16 completed Not Available Not Available Not Available calcium active Not Available Not Avail [...] completed Not Available Not Available Not Available Gavilax 17 gram/dose oral powder 17 GM BY MOUTH DAILY,INS TR:FOLLOW THE INSTRUCTI ONS DISCUSSED active Not Available Not Available No t Available Chantix Continuing Month Box 1 mg [...] No t Available Vitals Date Recorded Body height Body mass index (BMI) Body weight Heart rate Systolic And Diastolic Provider Name and Address Organization Details Last Updated DateTime 08/16/2025 162.56 cm 24.7 kg/m2 49097.3 g 77 /min 161/71 mm[Hg] Socorro Santoyo [place] - [facility], 08/16/2025 13:17:40 Social History Question Answer Notes LastModified by Organizat ion Details LastModified Time Tobacco Smoking Status Current Every Day Smoker smoking cessation discussed 04/22/16 Not Available [employer] 09/17/2020 03:19:42 How Many Years Have You Consumed Alcohol? 50 Information not available 09/14/2024 What Is Your Level Of Caffeine Consumption? Occasional [id number] Information not available 09/17/2020 In The 14 [...] For COVID-19? No Information not available 09/03/2022 What Type Of Diet Are You Following? REGULAR [id number] Information not available 09/17/2020 Which Illicit Or Recreational Drugs Have You Used? No [id number] Information not available 09/17/2020 Do You Reside In Or Have You Traveled To An Area Where Ebola Virus Transmission Is Active? No [id number] Information not available 09/17/2020 Education 4 Year College Information not available 04/04/2013 How Many Days In The Past Year [...] Date Of Your Most Recent Tobacco Screening? 08/16/2025 Information not available 08/16/2025 What Is Your Relationship Status? Information not available 09/03/2022 Are You Sexually Active? No [id number] Information not available 09/17/2020 How Much Tobacco Do You Smoke? 1 PPD [id number] Information not available 09/17/2020 General Stress Level Low Information not available 08/16/2025 How Many Years Have You Smoked Tobacco? 33 [id number] Information not available 09/17/2020 Have You Recently (within The Last 12 Weeks, Or During A Current ) Traveled To Or Lived In A Zika-affected Area? No Information not available 04/30/2017 How Many Days In The Past Year Have You Consumed 4 Or More Drinks? -1 Information not available 09/14/2024 Sex: Female Functional Status Question Answer Note LastModified by Organizat ion Details LastModified Time Do you use any illicit or recreational drugs? No Information not available 09/03/2022 Do you or have you ever used any other forms of tobacco or nicotine? No Information not available 09/03/2022 What is your level of alcohol consumption? Occasional [id number] Information not available 09/17/2020 Do you or have you ever used smokeless tobacco? Never used smokeless tobacco [id number] Information not available 09/17/2020 Are you currently employed? 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 Information not available 08/16/2025 Do you or have you ever used e-cigarettes or vape? Never used electronic cigarettes [id number] Information not available 09/17/2020 What is your exercise level? Occasional [id number] Information not available 09/17/2020 Mental Status Question Answer Note LastModified by Organization D etails LastModified Time Do you feel stressed (tense, restless, nervous, or anxious, or unable to sleep at night)? [id number] Information not available 09/03/2022 Family History Relationship Description Onset Age of this Age Resolved Age Notes LastModified by Organization Details LastModified Time Father Myocardial infarction 55 previo usly record ed as Heart Attack ([place]) Not available 04/22/2016 08:13:49 Maternal Grandfather Malignant neoplasm of colon 47 previo usly record ed as Colon Cancer Not available 04/22/2016 08:13:49 Paternal Grandfather Cerebrovascu lar accident stroke Not available 0 04/22/2016 08:13:49 Medical History Condition Response Anesthesia complications N High Blood Pressure Y Candidate for MyRisk panel N Autoimmune Condition N Lung Disease N Depression Y Defects or Inherited Disease N History of Ovarian Cancer N BRCA testing in past N Anxiety Disorder N Arthritis N Infertility N History of Cancer N Endometriosis N Thyroid Problems N Kidney or Bladder Problems N GI Problems Y Anemia N History of Breast Cancer N ILEANA exposure N Osteopenia N Psychiatric Illness N Diabetes N Headaches or Migraines N Asthma N Hepatitis N Heart Disease N Hypertension Y Osteoporosis N Gynecological History Statement/Question Response If Post Menopausal, Age at Menopause 52 Age at Menarche 13 Most Recent Mammogram 11/24/2024 Age at First Child 25 Most Recent Bone Density 11/24/2022 Hormone Replacement Therapy N Obstetrics History GPAL:G 3 P 3 0 0 3 Type Value Full Term 3 Living 3 Total 3 Immunizations Vaccine Type Date Status Note Provider Nam e and Address Organization Details Recorded Time Influenza, split virus, trivalent, preservative 2 completed [place] in [facility], 09/03/2022 11:11:07 Influenza, MDCK, quadrivalent, PF 0 completed Anastasiya López MD [address] [place] [address],[address], [place], [address], [place] in [facility], 09/10/2020 11:48:36 Influenza, split virus, trivalent, preservative 3 completed [place] in [facility], 09/03/2022 11:11:07 pneumococcal, unspecified formulation 5 completed [place] in [facility], 09/03/2022 11:11:07 influenza, unspecified formulation 6 completed [place] in [facility], 09/03/2022 11:11:07 Influenza, split virus, quadrivalent, preservative 7 completed [place] Crow[place] in [facility], 06/01/2018 09:46:36 Influenza, split virus, quadrivalent, preservative 8 completed [place] in [facility], 09/03/2022 11:11:07 Influenza, split virus, quadrivalent, preservative 9 completed [place] in [facility], 09/10/2020 11:02:17 Tdap 1 completed Payal Harper null, [place] [facility], 09/03/2022 11:11:07 Influenza, split virus, trivalent, preservative 6 completed Payal Leroy null[place] [facility], 09/03/2022 11:11:07 Influenza, split virus, trivalent, preservative 2 completed Payal Harper null, [place] [facility], 09/03/2022 11:11:07 Influenza, split virus, trivalent, preservative 3 completed Payal Harper null, [place] [facility], 09/03/2022 11:11:07 COVID-19, mRNA, LNP-S, PF, 30 mcg/0.3 mL dose 1 completed Payal Harper null, [place] [facility], 09/03/2022 11:11:07 COVID-19, mRNA, LNP-S, PF, 30 mcg/0.3 mL dose 1 completed Payal Harper null, [place] [facility], 09/03/2022 11:11:07 Td(adult) unspecified formulation 5 completed Payal Harper null, [...] 30 mcg/0.3 mL dose 1 completed Payal álvarez, [place] [facility], 09/03/2022 11:11:07 Influenza, split virus, quadrivalent, preservative 1 completed Payal álvarez[place] [facility], 09/03/2022 11:13:56 Influenza, high-dose, quadrivalent, PF 2 completed Socorro Meczywor null, [place] [facility], 09/14/2024 14:28:19 COVID-19, mRNA, LNP-S, bivalent, PF, 30 mcg/0.3 mL dose 2 completed Socorro Meczywor null, [place] [facility], 09/14/2024 14:28:19 Tdap 3 completed Socorro Meczywor null, [place] [facility], 09/14/2024 14:28:19 Pneumococcal conjugate PCV20, polysaccharide [id number] conjugate, adjuvant, PF 4 completed Socorro Meczywor [...] Diagnosis SNOMED-CT Code Diagnosis ICD10 Code Diagnosis IMO Codes Diagnosis Note [id number] MD ANASTASIYA Ramirez MD [address] [facility], [address] [place] [phone] 08/16/2025 13:13:32 08/16/2025 14:33:44 Osteopenia [id number] M85.88 Tobacco de pendence syndrome [id number] F17.290 Health Concerns Section Related Observation LastModified by Organization Detai ls LastModified Time None Recorded Concern Status LastModified by Organization Details LastModified Time None Recorded Payers Encounter Date Sequence Insurance Name Policy Number Policy Moyer Covered Member ID Moyer Member ID Guarantor Name 08/16/2025 2 [employer] (MEDICARE SUPPLEMENT) Megan Weeks [id number] Megan Weeks 08/16/2025 1 [place] [employer] Megan Weeks [id number] Megan Weeks Notes Date Note Type Note Provider Name and Address Organization Details Recorded Time 08/16/2025 text/html She is here to discuss her recent bone density. it showed osteopenia with a 6% decrease in the hip which was statistically significant. She had been referred to [facility] in 01/2025, after repeat pap still had MARK on it after negative testing earlier. She had the hysterectomy wiht Dr. Daniels in [facility], no pathology was found. Note from 01/2025: She had a pap with MARK favor neoplastic. We did colpo, ecc and emb, and no abnormal cells were found, on 10/16/24.Pap taken. If negative then resume annual screening pap. If abnormal then order pelvic sonogram and refer to [facility]. Anastasiya López MD [address] [facility],[address], [place], [address], [place] [facility], 08/16/2025 14:11:12 OBGyn Episode No OBEpisode recorded.
--- OUTSIDE RECORDS SUMMARY | 2025-10-25 21:27 | XMS_ITS | Data Portability ---
Author Organization [place] - [facility],, ANASTASIYA ENGLISH MD Address [address] [address] Care Team Providers Care Honey Liquefier Name Role Phone ASHLEY ENID Primary Care Provider [phone] Assessment No assessment recorded. Plan of Treatment Reminders Order Date Submit Date Provider Last Modified By Organization Details Last Modified Time Details Appointments None recorded. Lab pap, IG + reflex HPV if ASC-U 2024 025 tmeczywor [facility] (Centralized Electronic Ordering - All Locations), Patient Can Go To The Location Of Their Choice, [id number] 5 07:21:25 biopsy, endometria l 2023 024 tmeczywor [facility] (Centralized Electronic Ordering - All Locations), Patient Can Go To The Location Of Their Choice, [address] 4 07:41:17 biopsy, cervical 2023 024 tmeczywor [facility] (Centralized Electronic Ordering - All Locations), Patient Can Go To The Location Of Their Choice, [address] 4 07:41:18 biopsy, endocervic al 2023 024 tmeczywor [facility] (Centralized Electronic Ordering - All Locations), Patient Can Go To The Location Of Their Choice, [id number] 4 07:41:18 cytology report, thin prep, smear or scraping, cervical or vaginal 2023 024 KYA [facility] (Centralized Electronic Ordering - All Locations), Patient Can Go To The Location Of Their Choice, [address] 4 16:06:53 Referral None recorded. Procedures biopsy, endometriu m (PROC) 2023 PIFFARD In-Office Order, Internal Use Only DO Not Attach Compendium DO Not Attach Compendium, Do Not Delete/merge, [id number] 4 11:00:34 colposcopy with biopsy and endocervic al curettage (PROC) 2023 KYA In-Office Order, Internal Use Only DO Not Attach Compendium DO Not Attach Compendium, Do Not Delete/merge, [id number] 4 11:00:34 Surgeries None recorded. Imaging MAMMO, screening, digital, bilateral - Breast Aspiration and/or Biopsy if needed 2023 [facility], [address], [address], [place], [address], 5 15:22:01 bone density 2023 [facility] ([facility]), [address] [place], [address], 5 14:06:24 Medication Orders None recorded. Patient TargetsNo targets recorded. Patient Instructions Encounter Date Encounter Id Patient Instructions Last Modified By Organization Details Last Modified Time 09/14/2024 [id number] deciding about using medicines to quit smoking [...] the breast. Not available 09/14/2024 14:58:33 10/04/2024 [id number] She is here to discuss her recent [...] 25 minutes Not available 10/04/2024 11:47:02 10/16/2024 [id number] postmenopausal bleeding information Not available 10/16/2024 10:12:57 [...] her cervix appears. Not available 10/16/2024 10:16:43 01/23/2025 [id number] abnormal Pap nik t: care instructions Not available 01/23/2025 10:38:27 She had a pap wi th MARK favor neoplastic. We did colpo, ecc and emb, and no abnormal cells were found, on 10/16/24. Pap taken. If negative then resume annual screening pap. If abnormal then order pelvic sonogram and [facility] Not available 01/23/2025 10:41:59 08/16/2025 [id number] deciding about using medicines to quit smoking Not available 08/16/2025 13:56:55 Quitting Tobacco : Care [facility] Not available 08/16/2025 13:56:55 She is here to discuss her recent bone density. it showed osteopenia with a 6% decrease in the hip which was statistically significant. She had been referred to [facility] in 01/[facility], after repeat pap still had MARK on it after negative testing earlier. She had the hysterectomy wiht Dr. Daniels in [facility], no pathology was found. Note from 01/2025: She had a pap with MARK favor neoplastic. We did colpo, ecc and emb, and no abnormal cells were found, on 10/16/24. Pap taken. If negative then resume annual screening pap. If abnormal then order pelvic sonogram and refer to [facility]. ____ We discussed her diagnosis of [...] Abnormal Flag Note LastModifiedBy Organization Detail LastModifiedTime 09/14/2009/21/2024 IGP, RFX APTIM A HPV ASCU diagnosis: rBet mckeon abnormal EPITH ELIAL CELL ABNOR MALIT Y. ATYPI CARMEN GLAND ULAR CELLS (AGC) , FAVOR NEOPL ASTIC . Not Available [address], [address], 09/21/2024 16:06:53 09/14/20 24 09/21/2024 IGP, RFX APTIM A HPV ASCU specimen adequacy: Bret t Satis facto ry for evalu ation . Endoc ervic al and/o r squam ous metap lasti c cells (endo cervi carmen compo nent) are prese nt. Not Available [address], [address], 09/21/2024 16:06:53 09/14/20 24 09/21/2024 IGP, RFX APTIM A HPV ASCU clinician provided ICD10: Bret mckeon Z12.4 Not Available [address], [address], 09/21/2024 16:06:53 09/14/20 24 09/21/2024 IGP, RFX APTIM A HPV ASCU additional comment: Bret mckeon INTRA DEPAR TMENT AL CONSU LTANT : DR. Saeid TOWNSENDE Not Available [address], [address], 09/21/2024 16:06:53 09/14/20 24 09/21/2024 IGP, RFX APTIM A HPV ASCU performed by: Sumi Benitez (ASCP ) Not Available [address], [address], 09/21/2024 16:06:53 09/14/20 24 09/21/2024 IGP, RFX APTIM A HPV ASCU electronical ly signed by: Bret Alfaro MD, Patho logis t Not Available [address], [address], 09/21/2024 16:06:53 09/14/20 24 09/21/2024 IGP, RFX APTIM A HPV ASCU . . Not Available [address], [address], 09/21/2024 16:06:53 09/14/20 24 09/21/2024 IGP, RFX APTIM A HPV ASCU pathologist provided ICD10: Bret mckeon R87.6 19 Not Available [address], [address], 09/21/2024 16:06:53 09/14/20 24 09/21/2024 IGP, RFX APTIM A HPV ASCU note: Bret mckeon The Pap smear is a scree sarina [...] repor ts do occur . Not Available [address], [address], 09/21/2024 16:06:53 09/14/20 24 09/21/2024 IGP, RFX APTIM A HPV ASCU test methodology: Commen t This liqui d based ThinP rep(R ) pap test was scree ban with the use of an image guide nevaeh systsasha m. Not Available [address], [address], 09/21/2024 16:06:53 09/14/20 24 09/21/2024 IGP, RFX APTIM A HPV ASCU . Commen t The HPV DNA refle x crite eryna were not met with this speci men resul t there fore, no HPV testi ng was perfo rmed. Not Available [address], [address], 09/21/2024 16:06:53 10/16/20 24 10/16/2024 [facility] PATHO LOGY results Patie nt Name: ANGEL KENT SANTA Lab Acces fredo #: [id number] Patie nt : [id number] (Age: 69) Colle ction [...] secti ons of all parts are Negat jason for gland ular or squam ous atypi a. Prima ry Patho logis t:Sam Richards M.D., Ph.D. elect luis eduardo adair marisol d out by: Lyssa Richards M.D., Ph.D. / [facility] Clini carmen Histo ry: Atypi carmen gland [...] perfo rmed at [facility] [place] [facility] , [address], [place] (CLIA #[id number]). Its perfo rmanc e angelika cteri stics deter mined by [facility]. Alia Link M.D. Medic al Direc tor of Surgi carmen Patho Saeid gross M.D. 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 Not Available [address], [address], 01/27/2025 12:15:49 01/24/20 25 01/27/2025 IGP, RFX APTIM A HPV ASCU specimen adequacy: Bret mckeon Satis facto ry for evalu ation . Endoc ervic al and/o r squam ous metap lasti c cells (endo cervi carmen compo nent) are prese nt. Not Available [address], [address], 01/27/2025 12:15:49 01/24/20 25 01/27/2025 IGP, RFX APTIM A HPV ASCU clinician provided ICD10: Bret mckeon R87.6 19 Not Available [address], [address], 01/27/2025 12:15:49 01/24/20 25 01/27/2025 IGP, RFX APTIM A HPV ASCU performed by: Bret Fofana , Cytot lauren mckeon (ASCP ) Not Available [address], [address], 01/27/2025 12:15:49 01/24/20 25 01/27/2025 IGP, RFX APTIM A HPV ASCU electronical ly signed by: Bret Link MD, Patho tracy t Not Available [address], [address], 01/27/2025 12:15:49 01/24/20 25 01/27/2025 IGP, RFX APTIM A HPV ASCU . . Not Available [address], [address], 01/27/2025 12:15:49 01/24/20 25 01/27/2025 IGP, RFX APTIM A HPV ASCU pathologist provided ICD10: Bret mckeon R87.6 19 Not Available [address], [address], 01/27/2025 12:15:49 01/24/20 25 01/27/2025 IGP, RFX APTIM A HPV ASCU note: Bret mckeon The Pap smear is a scree sarina [...] repor ts do occur . Not Available [address], [address], 01/27/2025 12:15:49 01/24/20 25 01/27/2025 IGP, RFX APTIM A HPV ASCU test methodology: Bret mckeon This liqui d based ThinP rep(R ) pap test was scree ban with the use of an image guide d syste m. Not Available [address], [address], 01/27/2025 12:15:49 01/24/20 25 01/27/2025 IGP, RFX APTIM A HPV ASCU . Commen t The HPV DNA refle x crite reyna were not met with this speci men resul t there fore, no HPV testi ng was perfo rmed. Not Available [facility] [address] [facility], [place], [address], 01/27/2025 12:15:49 02/04/20 25 02/02/2025 MAMMO , scree sarina, digit al, bilat eral No observ ation record ed. [facility] [address], [place], [address], 02/05/2025 05:47:57 08/09/20 25 08/09/2025 bone densi ty No observ ation record ed. [facility] [address] [place], [address], 08/10/2025 09:16:15 Result Notes None recorded. Problems Name Problem SNOMED Code Status Onset Date Resolution Date Notes Provider Name and Address Organization Details Recorded Time Depressive disorder 58652884 Active Anastasiya English MD [address] [facility],[address], [place], [address], [place] [facility], 6 08:21:32 Tobacco dependence syndrome 14481913 Active 018 Anastasiya English MD [address] [facility] [address],[address], [place], [address], [place] [facility], 8 10:17:23 Osteopenia 712617628 Active 023 Anastasiya English MD [address], [place], [address], [place] - [facility], 3 11:25:49 Problem Notes None recorded. Procedures Surgical History Date Name Laterality Status Provider Name and Address Organization Details Recorded Time 03/12/20 25 total hysterectomy completed Socorro Carrillo in [facility], 08/16/2025 13:22:38 11/24/19 25 Most Recent Mammogram completed Socorro Carrillo in [facility], 08/16/2025 13:22:09 10/16/20 24 Colposcopy completed Anastasiya English MD [address], [place], [address], [place] [facility], 10/16/2024 10:11:13 10/16/20 24 Endometrial Biopsy completed Anastasiya English MD [address], [place], [address], [place] [facility], 10/16/2024 10:11:34 11/24/19 23 Most Recent Bone Density completed Socorro Carrillo in [facility], 09/04/2024 09:43:32 Imaging Results None recorded. Procedure [...] Available Not Available Not Available Fluzone Quad (PF) 60 mcg(15 mcgx4)/0.5 mL intramuscul ar syringe [...] and Address Organization Details Last Updated DateTime 01/23/2025 162.56 cm 25.7 kg/m2 06909.14 g 88 /min 152/75 mm[Hg] Socorro Carrillo in [facility], 01/23/2025 10:24:38 Date Recorded Body height Body mass index (BMI) Body weight Heart rate Systolic And Diastolic Provider Name and Address Organization Details Last Updated DateTime 08/16/2025 162.56 cm 24.7 kg/m2 52612.3 g 77 /min 161/71 mm[Hg] Socorro Carrillo in [facility], 08/16/2025 13:17:40 Date Recorded Body height Body mass index (BMI) Body weight Heart rate Systolic And Diastolic Provider Name and Address Organization Details Last Updated DateTime 09/14/2024 162.56 cm 25.1 kg/m2 71907.49 g 90 /min 137/62 mm[Hg] Socorro Carrillo in [facility], 09/14/2024 14:28:51 Date Recorded Body height Body mass index (BMI) Body weight Body temperature Heart rate Systolic And Diastolic Provider Name and Address Organization Details Last Updated DateTime 162.56 cm 25.1 kg/m2 45417.4 9 g 97.4 [degF] 82 /min 150/69 mm[Hg] Socorro Carrillo in [facility], 4 10:06:40 Date Recorded Body height Body temperature Body mass index (BMI) Body weight Heart rate Systolic And Diastolic Provider Name and Address Organization Details Last Updated DateTime 4 162.56 cm 97.6 [degF] 25.5 kg/m2 00783.5 4 g 76 /min 160/80 mm[Hg] Socorro Carrillo in [facility], 4 09:40:21 Social History Question Answer Notes LastModified by Organizat ion Details LastModified Time Tobacco Smoking Status Current Every Day Smoker smoking cessation discussed 04/22/16 Not Available [facility] 09/17/2020 03:19:42 How Many Years Have You Consumed Alcohol? 50 Information not available 09/14/2024 What Is Your Level Of Caffeine Consumption? Occasional [id number] Information not available 09/17/2020 In The 14 [...] Type Of Diet Are You Following? REGULAR [id number] Information not available 09/17/2020 Which Illicit Or Recreational Drugs Have You Used? No [id number] Information not available 09/17/2020 Do You Reside In Or Have You Traveled To An Area Where Ebola Virus Transmission Is Active? No [id number] Information not available 09/17/2020 Education 4 Year [...] available 09/03/2022 Are You Sexually Active? No [id number] Information not available 09/17/2020 How Much Tobacco Do You Smoke? 1 PPD [id number] Information not available 09/17/2020 General Stress Level Low Information not available 08/16/2025 How Many Years Have You Smoked Tobacco? 33 [id number] Information not available 09/17/2020 Have You Recently [...] is your level of alcohol consumption? Occasional [id number] Information not available 09/17/2020 Do you or have you ever used smokeless tobacco? Never used smokeless tobacco [id number] Information not available 09/17/2020 Are you currently employed? 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 Information not available 08/16/2025 Do you or have you ever used e-cigarettes or vape? Never used electronic cigarettes [id number] Information not available 09/17/2020 What is your exercise level? Occasional [id number] Information not available 09/17/2020 Mental Status Question Answer Note LastModified by Organization D etails LastModified Time Do you feel stressed (tense, restless, nervous, or anxious, or unable to sleep at night)? [id number] Information not available 09/03/2022 Family History Relationship Description Onset Age of this Age Resolved Age Notes LastModified by Organization Details LastModified Time Father Myocardial infarction 55 previo usly record ed as Heart Attack ([place]) Not available 04/22/2016 08:13:49 Maternal Grandfather Malignant neoplasm of colon 47 previo usly record ed as Colon Cancer Not available 04/22/2016 08:13:49 Paternal Grandfather Cerebrovascu lar accident stroke Not available 0 04/22/2016 08:13:49 Medical History Condition Response Anesthesia complications N High Blood Pressure Y Candidate for MyRisk panel N Autoimmune Condition N Thyroid Problems N Kidney or Bladder Problems N GI Problems Y Lung Disease N Depression Y Defects or Inherited Disease N History of Ovarian Cancer N Anemia N History of Breast Cancer N [...] split virus, trivalent, preservative 2 completed Payal álvarez [place] [facility], 09/03/2022 11:11:07 Influenza, MDCK, quadrivalent, PF 0 completed Anastasiya English MD [address] [facility],[address], [place], [address], [place] [facility], 09/10/2020 11:48:36 Influenza, split virus, trivalent, preservative 3 completed Payal Harper null, [place] [facility], 09/03/2022 11:11:07 pneumococcal, unspecified formulation 5 completed Payal Harper null, [place] [facility], 09/03/2022 11:11:07 influenza, unspecified formulation 6 completed Payal Harper null, [place] [facility], 09/03/2022 11:11:07 Influenza, split virus, quadrivalent, preservative 7 completed Socorro Nicholsonwor null, [place] [facility], 06/01/2018 09:46:36 Influenza, split virus, quadrivalent, preservative 8 completed Payal Harper null, [place] [facility], 09/03/2022 11:11:07 Influenza, split virus, quadrivalent, preservative 9 completed Socorro Santoyo null, [place] [facility], 09/10/2020 11:02:17 Tdap 1 completed Payal Harper null, [place] [facility], 09/03/2022 11:11:07 Influenza, split virus, trivalent, preservative 6 completed Payal Harper null, [place] [facility] [...] Socorro Meczywor null, [place] [facility], 09/14/2024 14:28:19 COVID-19, mRNA, LNP-S, bivalent, PF, 30 mcg/0.3 mL dose 2 completed Socorro Meczywor null, [place] [facility], 09/14/2024 14:28:19 Tdap 3 completed Socorro Meczywor null, [place] [facility], 09/14/2024 14:28:19 Pneumococcal conjugate PCV20, polysaccharide ORT327 conjugate, adjuvant, PF 4 completed Socorro Meczywor null, [place] [facility], 10/04/2024 10:07:01 influenza, unspecified formulation 2 completed Socorro Meczywor null, [place] [facility], 10/04/2024 10:07:01 Influenza, high-dose, trivalent, PF 4 completed Socorro Meczywor null, [place] [facility], 10/04/2024 10:07:01 Past Encounters Encounter ID Performer Location Encounter Start Date Encounter Closed Date Diagnosis/Indication Diagnosis SNOMED-CT Code Diagnosis ICD10 Code Diagnosis IMO Codes Diagnosis Note [id number] MD ANASTASIYA Ramirez MD [address] [place] [address],[address] [place] [address] 04/04/2013 11:32:57 04/05/2013 10:02:57 [id number] MD ANASTASIYA Ramirez MD [address] [place] [address],[address] [place] [address] 04/04/2014 08:14:50 04/04/2014 12:03:01 Specialized medical examination 96292851 Screening for malignant neoplasm of rectum 329867778 Screening mammography 03688520 [id number] MD ANASTASIYA Ramirez MD [address] [place] [address],[address] [place] [address] 04/05/2015 08:21:32 04/05/2015 10:22:35 Specialized medical examination 23026640 Screening for malignant neoplasm of rectum 403326814 Screening mammography 86222904 [id number] MD ANASTASIYA Ramirez MD [address] [place] [address],[address] [place] [address] 04/22/2016 07:59:33 04/22/2016 09:49:33 Specialized medical examination 68964914 Z01.419 Screening for malignant neoplasm of rectum 193496618 Z12.12 Screening mammography 24 355782 Z12.31 [id number] MD ANASTASIYA Ramirez MD [address] [place] [address],[place] [place] [address] 04/30/2017 08:38:50 04/30/2017 11:41:15 Specialized medical examination 21363606 Z01.419 Screening for malignant neoplasm of rectum 062070019 Z12.12 Screening mammography 24 140500 Z12.31 [id number] MD ANASTASIYA Ramirez MD [address] [place] [address], [address] [facility] [address] 06/01/2018 09:40:08 06/01/2018 10:47:30 Specialized medical examination 26519766 Z01.419 Screening for malignant neoplasm of rectum 318136390 Z12.12 Screening mammography 24 238548 Z12.31 Tobacco de pendence syndrome 15751328 F17.200 [id number] MD ANASTASIYA Ramirez MD [address] [place] [address], [address] [facility] [address] 07/05/2019 10:18:29 07/05/2019 11:25:07 Specialized medical examination 37320420 Z01.419 Screening for malignant neoplasm of rectum 074535480 Z12.12 Screening mammography 24 144537 Z12.31 Tobacco de pendence syndrome 02603062 F17.290 [id number] MD ANASTASIYA Ramirez MD [address] [place] [address], [address] [facility] [address] 09/10/2020 10:55:34 09/10/2020 11:54:06 Specialized medical examination 90747791 Z01.419 Screening for malignant neoplasm of rectum 041283919 Z12.12 Screening mammography 24 643826 Z12.31 Influenza vaccine needed 8919566446 106 Z23 [id number] MD ANASTASIYA Ramirez MD [address] [place] [address], [address] [facility] [address] 09/03/2022 11:01:26 09/03/2022 12:10:37 Screening for malignant neoplasm of cervix 805140025 Z12.4 Screening mammography 24 740980 Z12.31 Screening for osteoporosis 419220185 N95.8 Tobacco de pendence syndrome 10921768 F17.290 [id number] MD ANASTASIYA Ramirez MD [address] [place] [address], [place] [address] 12/30/2022 09:38:26 12/30/2022 11:43:11 Tobacco dependence syndrome 61054918 F17.290 Osteopenia 011759932 M85 .88 [id number] MD ANASTASIYA Ramirez MD [address] [place], [place] [address] [address] 09/14/2024 14:23:02 09/14/2024 15:42:40 Screening for malignant neoplasm of cervix 244058500 Z12.4 Screening mammography 24 093530 Z12.31 Screening for osteoporosis 621467461 N95.8 Tobacco de pendence syndrome 26903610 F17.290 [id number] MD ANASTASIYA Ramirez MD [address] [place], [place] [address] [address] 10/04/2024 10:03:31 10/04/2024 12:04:47 Atypical glandular cells on cervical Papanicolaou smear 459501248 R87.619 [id number] MD ANASTASIYA Ramirez MD [address] [place], [place] [address] [address] 10/16/2024 09:31:55 10/16/2024 15:48:30 Cytologic finding 798376308 R87.612 Atypical g landular cells on cervical Papanicolaou smear 727493001 R87.619 [id number] MD ANASTASIYA Ramirez MD [address] [place] [address] [place] [address] 01/23/2025 10:18:55 01/23/2025 11:41:45 Atypical glandular cells on cervical Papanicolaou smear 800069322 R87.619 [id number] MD ANASTASIYA Ramirez MD [address] [place] [address] [place] [address] 08/16/2025 13:13:32 08/16/2025 14:33:44 Osteopenia 863493287 M85.88 Tobacco de pendence syndrome 95470038 F17.290 Health Concerns Section Related Observation LastModified by Organization Detai ls LastModified Time None Recorded Concern Status LastModified by Organization Details LastModified Time None Recorded Advance Directives Directive None Recorded Payers Insurance Date Sequence Insurance Name Policy Number Policy Moyer Covered Member ID Moyer Member ID Guarantor Name 08/12/2021 1 [facility] - NAVIGATOR (POS) [id number] Warren Weeks [id number] Megan Nicholsini 04/22/2016 1 [facility] - NAVIGATOR - [facility] (PPO) [id number] Warren Weeks [id number] Megan Palpini 09/03/2022 1 [employer] [id number] Megan Palpini [id number] Megan Palpini 08/15/2025 2 [employer] (MEDICARE SUPPLEMENT) Megan Palpini [id number] Megan Palpini 08/16/2025 1 [place]: [employer] Megan M Palpini [id number] Megan Palpini Notes Date Note Type Note Provider Name and Address Organization Details Recorded Time 09/14/2024 text/html She is here for annual, doing well, current every day smokier. Bone density 2022 osteopenia. Overdue for mammogram, agrees to go now. ___ Note from 2021: She is here for annual exam, doing well, has not had a mammogram wince 2018 though. Her mother is stil living with her. She is happily retired.She is a current every day smoker. Anastasiya English MD [address] [facility],[address], [place], [address], [place] [facility], 09/14/2024 14:59:00 10/04/2024 text/html She is here to discuss her recent pap which showed MARK favor neoplastic. Her prior pap was 09/05 and negative, was satisfactory. She is an every day smoker, 1 PPD. She is , , retired, not sexually active. Anastasiya English MD [address], [place], [phone], [place] - [facility], 10/04/2024 11:47:17 10/16/2024 text/html She is here [...] a benign finding. Anastasiya English MD [address], [place], [address], [place] [facility], 10/16/2024 10:17:40 01/23/2025 text/html She had a pap with MARK favor neoplastic. We did colpo, ecc and emb, and no abnormal cells were found, on 10/16/24. Anastasiya English MD [address], [place], [address], [place] [facility], 01/23/2025 10:42:17 08/16/2025 text/html She is here to discuss her recent bone density. it showed osteopenia with a 6% decrease in the hip which was statistically significant. [facility] had [facility], after repeat pap still had MARK on it after negative testing earlier. She had the hysterectomy wiht Dr. Daniels in [facility], no pathology was found. Note from 01/2025: She had a pap with MARK favor neoplastic. We did colpo, ecc and emb, and no abnormal cells were found, on 10/16/24.Pap taken. If negative then resume annual screening pap. If abnormal then order pelvic sonogram and refer to [facility]. Anastasiya English MD [address], [place], [address], [place] [facility], 08/16/2025 14:11:12 OBGyn Episode No OBEpisode recorded.
--- OUTSIDE RECORDS SUMMARY | 2025-10-25 21:27 | XMS_ITS | Clinical Summary ---
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 30 tablet 6 07/02/20 25 Active Active Problems Problem Noted Date Diagnosed [...] Encounters Date Type Department Care Team Description 08/09/2025 1:11 PM EDT - 08/09/2025 11:59 PM EDT Hospital Encounter Bone Density - [address] [phone] Encounter for screening for osteoporosis; Osteogenesis imperfecta Discharge Disposition: Home or Self Care from Last 3 Months Immunizations Immunization Administration Dates Next Due Influenza trivalent, 0.5mL, preservative free (Fluarix; FluLaval; Fluzone) ages 6mo and older (Afluria) 3 years and older 08/18/2016,08/09/2007 CorMedix SARS-CoV-2 COVID-19, mRNA, LNP-S, preservative free 01/21/2021,12/31/2020 [...] HYSTERECTOMY TOTAL CERVIX REMOVED 03/12/2025 at [facility] by [facility] Medical History Medical History [...] polyp Brother 3 Alive Father (Age 54) [place], cig Maternal Grandfather (Age 50s) r ectal [...] on file Sexual Orientation Not on file Last Filed Vital Signs Vital Sign Reading [...] Care Team (Late st Contact Info) Description 01/03/2026 10:00 AM EST Office Visit Adult Medicine - [address] [phone] Javi Santos PA [address] [place], [place] [id number] Health Maintenance Due Date Last Done Comments Hepatitis A Vaccines (1 of 2 - Risk 2-dose series) 1975 Zoster Vaccines (1 of 2) 2006 Breast Cancer Screening 01/12/2020 01/12/2018 Medicare Annual Wellness Visit 10/24/2022 Social Influencers of Health Screening 10/24/2022 Depression Screening 11/15/2024 12/30/2023 Falls Risk Assessment 12/30/2024 12/30/2023 COVID-19 Vaccine ( season) 2025 10/27/2022, 08/20/2021, 01/21/2021, Additional history exists Influenza Vaccine (#1) 2025 , 09/24/2022, 08/19/2022, Additional history exists Colorectal Cancer Screening: Colonoscopy 05/27/2026 05/27/2021 Hypertension/CHF/CAD Annual BMP Blood Test 07/02/2026 07/02/2025, 01/11/2025, 03/27/2024, Additional history exists Cholesterol Screening (Lipid Panel) 07/02/2030 07/02/2025, 01/11/2025, 12/30/2023 RSV Immunization Adult Patients (1 - 1-dose 75+ series) 2031 DTaP,Tdap,and Td Vaccines (4 - Td or Tdap) 11/27/2032 11/27/2022, 07/30/2011, 04/06/2005 Osteoporosis Screening (Bone Density Screening) 08/09/2035 08/09/2025, 01/12/2018 Hepatitis C Screening Completed 05/11/2013 Pneumococcal Vaccine: [...] Procedure Name Priority Date/Time Associated Diagnosis Comments BD BONE DENSITY DXA AXIAL SKELETON Routine 08/09/2025 1:34 PM EDT Encounter for screening for osteoporosis Osteogenesis imperfecta COMPREHENSIVE METABOLIC PANEL Routine 07/02/2025 1:12 PM EDT Primary hypertension Hyponatremia LIPID PANEL WITH REFLEX TO DIRECT LDL Routine 07/02/2025 1:12 PM EDT Primary hypertension Mixed hyperlipidemia Hyponatremia Anxiety and depression Heart murmur DEPRESSION SCREENING Routine 12/30/2023 FALLS RISK ASSESSMENT Routine 12/30/2023 COLONOSCOPY Routine 05/27/2021 SCR MAMMO BI INCL CAD Routine 01/12/2018 9:55 AM EST Encounter for general adult medical examination without abnormal findings HEPATITIS C SCREENING Routine 05/11/2013 from Last 3 Months or Most Recently Relevant to Health Maintenance Results * BD Bone Density DXA Axial Skeleton (08/09/2025 1:34 PM EDT) Anatomical Region Laterality Modality Wrist, Hip, L-spine Bone Densito metry 08/09/2025 1:55 PM EDT Impressions 08/09/2025 1:57 PM EDT Osteopenia by WHO criteria. This patient has a 9.2% risk of major osteoporotic fracture and a 1.7% risk of hip fracture over the next 10 years. (World Health Organization Fracture Risk Assessment) The [facility] Department of Internal Medicine recommends using [...] alternative screening schedule based on mona Calderon., [facility] December 03, 2011 for patients with osteopenia (based on hip BMD T-score) is as follows: * advanced osteopenia (T scores -2.00 to -2.49), BMD testing every year * moderate osteopenia (T scores -1.50 to -1.99), BMD testing every 5 years mild osteopenia or normal BMD (T scores -1.50 and higher), BMD testing every 15 years -------- FINAL REPORT -------- Dictated By: Ting Solis Dictated Date: 08/09/2025 13:55 ET Assigned Physician: Ting Solis Reviewed and Electronically Signed By: Ting Solis Signed Date: 08/09/2025 13:57 ET Workstation ID: [id number] Transcribed By: Self Edit Transcribed Date: 08/09/2025 13:55 ET Narrative 08/09/2025 1:57 PM EDT BONE DENSITY SCAN (DEXA): FINDINGS: Lumbar Spine T-score is -1.1. (SD relative to 20-29 y/o adult) Z-score is 1.0. (SD relative to age matched peers) This is considered osteopenia by WHO criteria. Left Hip T-score is -1.2. Z-score is 0.5. This is considered osteopenia by WHO criteria. Comparison exam(s): 01/12/2018. 5.9% decrease in left hip bone mineral density which is statistically significant at the 95% confidence level. No statistically significant change in lumbar spine bone mineral density. Lateral survey view of the thoracolumbar spine shows no significant compression deformities. Procedure Note Ting Solis MD - 08/09/2025 BONE DENSITY SCAN (DEXA): FINDINGS: Lumbar Spine T-score is -1.1. (SD relative to 20-29 y/o adult) Z-score is 1.0. (SD relative to age matched peers) This is considered osteopenia by WHO criteria. Left Hip T-score is -1.2. Z-score is 0.5. This is considered osteopenia by WHO criteria. Comparison exam(s): 01/12/2018. 5.9% decrease in left hip bone mineraldensity which is statistically significant at the 95% confidence level.No statistically significant change in lumbar spine bone mineraldensity. Lateral survey view of the thoracolumbar spine shows no significantcompression deformities. IMPRESSION: Osteopenia by WHO criteria. This patient has a 9.2% risk of majorosteoporotic fracture and a 1.7% risk of hip fracture over the next 10years. (World Health Organization Fracture Risk Assessment) The [facility] Department of Internal Medicine recommendsusing National Osteoporosis Foundation (NOF) guidelines in treatmentdecisions related to osteoporosis. NOF guidelines suggest consideringtreatment for postmenopausal women and men aged 50 or older presentingwith the following: History of hip or vertebral fracture. T-score = -2.5 (DXA) at the femoral neck, total hip, or spine, afterappropriate evaluation to exclude secondary causes. Low bone mass (T-score between -1.0 and -2.5 at the femoral neck or spine)AND a 10-year probability of a hip fracture = 3% OR a 10-year probabilityof a major osteoporosis-related fracture = 20% based on the [place]-adapted WHOalgorithm Please note that all treatment decisions require clinical judgment andconsideration of individual patient factors, including patientpreferences, co-morbidities, previous drug use, risk factors not capturedin the FRAX model (e.g., frailty, falls, vitamin D deficiency, increasedbone turnover, interval significant decline in bone density) and possibleunder- or over-estimation of fracture risk by FRAX. Optional alternative screening schedule based on porfirio Calderon al., NEMJanuary 2011 for patients with osteopenia (based on hip BMD T-score)is as follows: * advanced osteopenia (T scores -2.00 to -2.49), BMD testing every year * moderate osteopenia (T scores -1.50 to -1.99), BMD testing every 5years mild osteopenia or normal BMD (T scores -1.50 and higher), BMD testingevery 15 years -------- FINAL REPORT -------- Dictated By: Ting Solis Dictated Date: 08/09/2025 13:55 ET Assigned Physician: Ting Solis Reviewed and Electronically Signed By: Ting Solis Signed Date: 08/09/2025 13:57 ET Workstation ID: [id number] Transcribed By: Self Edit Transcribed Date: 08/09/2025 13:55 ET us Anastasiya English MD IM DXA PROCEDURES Final Res ult * (ABNORMAL) Lipid panel with reflex to direct LDL (07/02/2025 1:12 PM EDT) Cholesterol 214(H) 0 - 200 mg/dL LAB CHEMISTRY METHOD 07/02/2025 3:07 PM EDT [facility] Triglycerides 227(H) 0 - 150 mg/dL LAB CHEMISTRY METHOD 07/02/2025 3:07 PM EDT [facility] HDL 60 >=40 mg/dL LAB CHEMISTRY METHOD 07/02/2025 3:07 PM EDT [facility] LDL Calculated 109(H) 0 - 100 mg/dL LAB CHEMISTRY METHOD 07/02/2025 3:07 PM [facility] Comment:Estimated LDL Calcul ated using equation: Total cholesterol - HDL cholesterol - (Triglycerides/5) VLDL Cholesterol Miguel Angel 45.4 mg/dL LAB CHEMISTRY METHOD 07/02/2025 3:07 PM EDT [facility] Non HDL Chol. (LDL+VLDL) 154(H) <145 mg/dL LAB CHEMISTRY METHOD 07/02/2025 3:07 PM EDT [facility] Chol/HDL Ratio 3.6 0.0 - 4.4 LAB CHEMISTRY METHOD 07/02/2025 3:07 PM [facility] Blood Venous blood specimen / Unknown Venipuncture / Unknown 07/02/2025 1:12 PM EDT 07/02/2025 1:12 PM EDT us Estela Dubois MD LAB BLOOD ORDERABLES F inal Result [facility] [address] [place] [address], [place] [phone] * (ABNORMAL) Comprehensive metabolic panel (07/02/2025 1:12 PM EDT) Sodium 133 133 - 145 mmol/L LAB CHEMISTRY METHOD 07/02/2025 3:07 PM [facility] Potassium 4.0 3.5 - 5.5 mmol/L LAB CHEMISTRY METHOD 07/02/2025 3:07 PM [facility] Chloride 97 96 - 110 mmol/L LAB CHEMISTRY METHOD 07/02/2025 3:07 PM [facility] CO2 32 21 - 32 mmol/L LAB CHEMISTRY METHOD 07/02/2025 3:07 PM [facility] Anion Gap 4 3 - 11 LAB CHEMISTRY METHOD 07/02/2025 3:07 PM [facility] Glucose 115(H) 70 - 100 mg/dL LAB CHEMISTRY METHOD 07/02/2025 3:07 PM [facility] BUN 12 5 - 25 mg/dL LAB CHEMISTRY METHOD 07/02/2025 3:07 PM [facility] Creatinine 0.73 0.50 - 1.10 mg/dL LAB CHEMISTRY METHOD 07/02/2025 3:07 PM [facility] eGFR 89 >=60 mL/min/1. 73m2 LAB CHEMISTRY METHOD 07/02/2025 3:07 PM [facility] Comment:Calculation based on the Chronic Kidney Disease Epidemiology Collaboration (CKD-EPI) equation refit without adjustment for race. BUN/Creatinine Ratio 16.4 LAB CHEMISTRY METHOD 07/02/2025 3:07 PM T [facility] Calcium 10.0 8.5 - 10.5 mg/dL LAB CHEMISTRY METHOD 07/02/2025 3:07 PM [facility] AST (SGOT) 18 10 - 42 unit/L LAB CHEMISTRY METHOD 07/02/2025 3:07 PM [facility] ALT (SGPT) 19 10 - 60 unit/L LAB CHEMISTRY METHOD 07/02/2025 3:07 PM [facility] Alkaline Phosphatase 81 42 - 121 unit/L LAB CHEMISTRY METHOD 07/02/2025 3:07 PM [facility] Total Protein 7.8 6.0 - 8.0 g/dL LAB CHEMISTRY METHOD 07/02/2025 3:07 PM [facility] Albumin 3.9 3.2 - 5.0 g/dL LAB CHEMISTRY METHOD 07/02/2025 3:07 PM [facility] Total Bilirubin 0.3 0.0 - 1.4 mg/dL LAB CHEMISTRY METHOD 07/02/2025 3:07 PM [facility] Blood Venous blood specimen / Unknown Venipuncture / Unknown 07/02/2025 1:12 PM EDT 07/02/2025 1:12 PM EDT us Estela Dubois MD LAB BLOOD ORDERABLES F inal Result [facility] [address] [place] [address], [place] [phone] * Falls Risk Assessment (12/30/2023) Falls Risk Assessment Abstracted [facility] Provider [place] [facility] Final Result * Depression Screening (12/30/2023) Depression Screening Abstracted [facility] Provider [facility] Final Result * Colonoscopy (05/27/2021) Colonoscopy Abstracted, no interpretation Anatomical Region Laterality Modality Other [facility] Provider [facility] - [...] category Low (<15%) Procedure Note Magdalena Waters, - 12/20/2023 This is a summary report. [...] % Breast cancer risk category Low (<15%) Result [facility] Gloria Colunga MD IMG XR PROCEDURES Final Result * Hepatitis C Screening (05/11/2013) Hepatitis C Screening Abstracted Historical Provider HEALTH MAINTENANCE Final Result from Last 3 Months or Most Recently Relevant to Health Maintenance Insurance MEDICARE [employer] Care Teams Bread Racker Relationship Specialty Start Date End Date Estela Dubois MD [address] [place] [id number] PCP - General Internal Medicine 05/12/22
== END 2025-10-25 14:20 | disposition home or self-care (01) ==
LOC: HO.HOP 14:00
PROVIDERS: PCP Family Medicine; Visit Provider Psychiatry & Neurology Psychiatry
DX: F32.5 Major depressive disorder, single episode, in full remission (principal); F40.10 Social phobia, unspecified
CPT/HCPCS: 99214

== ENCOUNTER → 2025-10-25 14:00 | Outpatient (BNVA) | payer MEDICARE, OTHER, SELFPAY | PROVIDERS: PCP Family Medicine; Visit Provider Psychiatry & Neurology Psychiatry | DX: F32.5 Major depressive disorder, single episode, in full remission (principal); F40.10 Social phobia, unspecified | CPT/HCPCS: 99212 ==